=== PATIENT | female | born 1950 | race Hispanic/Latino ===

== ENCOUNTER 2019-10-22 12:03 | Inpatient (IN) | payer MEDICARE ==
[~2019-10-22 12:03] MED LIST: EPINEPHrine 1 MG/ML AMP ONE; Iopamidol 370 76% 50 ML VIAL FS ONE; Sodium Bicarb 50 MEQ/50 ML Abboject 8.4% SYRINGE ONE
[2019-10-22] MEDS ORDERED: Adacel (T-DAP) 0.5 ML SYRINGE ONE (12:12)
[2019-10-22] MEDS ORDERED: Fentanyl 100 MCG/2 ML VIAL ONE ×4 (12:13→14:46)
[2019-10-22] MEDS ORDERED: Ondansetron PF 4 MG/2 ML Vial ONE (12:13)
[2019-10-22] MEDS ORDERED: Succinylcholine Chloride 20 MG/ML 10 ml SYRINGE FS ONE (12:22)
[2019-10-22] MEDS ORDERED: Ketamine 50 MG/ML (10ML VIAL) ONE ×2 (12:22→12:32)
[2019-10-22] MEDS ORDERED: Sodium Bicarb 50 MEQ/50 ML VIAL ONE ×2 (12:31→23:58)
[2019-10-22] MEDS ORDERED: Calcium Chloride 1 GM/10 ML Abboject SYRINGE ONE ×4 (12:31→23:58)
[2019-10-22 12:33] LABS: #Eosinphils 0.1 thou/uL (0.0-0.7); #Lymphocytes 4.1 thou/uL (1.20-3.40); #Monocytes 0.4 thou/uL (0.11-0.59); #Neutrophils 9.5 thou/uL (1.40-6.50); %Basophils 0.2 % (0.0-1.0); %Eosinophils 0.6 % (0.0-10.0); %Lymphocytes 29.1 % (21.0-51.0); %Monocytes 2.5 % (0.0-10.0); %Neutrophils 67.6 % (42.0-75.0); Hemoglobin 12.1 g/dL (12.0-16.0); Mean Corpuscular HGB CONC 35.1 g/dL (32.0-36.0); Mean Corpuscular Hemoglobin 31.4 pg (27.0-31.0); Mean Corpuscular Volume 89.5 fL (78.0-98.0); Mean Platelet Volume 7.6 fL (7.4-10.4); Platelet Count 268 thou/uL (130-400); Red Blood Cell (RBC) Count 3.86 mill/uL (4.20-5.40); White Blood Cell (WBC) Count 14.1 thou/uL (4.8-10.8)
[2019-10-22] MEDS ORDERED: Heparin 10,000 UNITS/1 ML VIAL ONE (12:33)
[2019-10-22 12:41] LABS: INR-International Normal Ratio 1.1; Prothrombin Time 14.2 SEC (12.0-14.7)
[2019-10-22 12:54] LABS: ALT (SGPT) 293 U/L (8-55); AST (SGOT) 436 U/L (5-34); Albumin 3.8 g/dL (3.4-4.8); Alkaline Phosphatase 84 U/L (40-110); Anion Gap 20 mmol/L (10-20); BUN (Urea Nitrogen) 11 mg/dL (9.8-20.1); Bilirubin, Total 0.4 mg/dL (0.2-1.2); Calc. Creatinine Clearance 0 mL/min (70-130); Calcium 8.9 mg/dL (7.8-10.44); Carbon Dioxide 17 mmol/L (23-31); Chloride 100 mmol/L (98-107); Estimated GFR-MDRD 51; Globulin 2.9 g/dL (2.4-3.5); Glucose 237 mg/dL (80-115); Potassium 3.5 mmol/L (3.5-5.1); Protein, Total 6.7 g/dL (6.0-8.3); Sodium 133 mmol/L (136-145)
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
--- NOTE | 2019-10-22 13:10 | RAD ---
AP pelvis one view: HISTORY: The upper pelvis and iliac crests are not completely included. There is rotation to the right. There is considerable irregularity and deformity of the right pelvis particularly the superior and inferior ischiopubic rami which could represent extensively displaced fractures. There is also a luce ncy through the right sacral alar region which could represent fracture through this region as well. IMPRESSION: Extensive fractures and deformity of the right pelvis particularly the superior and inferior superior pubic rami considerable associated displacement and deformity. Evidence for right sided sacral fracture. Given the significant rotation follow-up study of the pelvis for additional imaging including CT migh t be of benefit.
[2019-10-22] MEDS ORDERED: Vecuronium 10 MG VIAL ONE ×2 (13:11→22:53)
[2019-10-22] MEDS ORDERED: Sterile Water 10 ML ONE (13:11)
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
[2019-10-22 13:45] LABS: Actual Bicarbonate (HCO3a) 17.6 mEq/L (22-28); Analyzer IN Cardio ER; Base Excess (BEa) -6.8 mEq/L (-2.0 to +3.0); CO2 Tension 31.7 mmHg (35.0-45.0); Calcium, Ionized 1.39 mmol/L (1.12-1.30); Carboxyhemoglobin (COHb) 0.3 gm% (0.0-3.0); Hemoglobin (Hb) 11.6 g/dL (12.0-16.0); O2 Tension (PaO2) 85.1 mmHg (> 80.0); Potassium - ABG Lab 3.59 mmol/L (3.70-5.30); pH, Arterial 7.36 (7.35-7.45)
[2019-10-22 13:48] LABS: ALV-art Gradient 303.075 (0-20); Puncture Site ART LINE
[2019-10-22 13:56] LABS: Phosphorus 4.6 mg/dL (2.3-4.7)
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
[2019-10-22] MEDS ORDERED: Lidocaine 1% (PF) 30 ML VIAL ONE ×2 (14:29→23:26)
[2019-10-22] MEDS ORDERED: Albumin 5% 500 ML ONE (15:27)
[2019-10-22] MEDS ORDERED: Iopamidol-370 76% 500 ML 1 ML ONE (15:27)
[2019-10-22] MEDS ORDERED: Dextrose 50% Abboject 50 ML SYRINGE SLOW IVP PRN (15:33)
[2019-10-22] MEDS ORDERED: Dextrose 5% in Water 1,000 ML IV PRN (15:33)
[2019-10-22 15:43] LABS: Actual Bicarbonate (HCO3a) 19.4 mEq/L (22-28); Base Excess (BEa) -5.2 mEq/L (-2.0 to +3.0); CO2 Tension 33.9 mmHg (35.0-45.0); Calcium, Ionized 1.27 mmol/L (1.12-1.30); Carboxyhemoglobin (COHb) 0.8 gm% (0.0-3.0); Hemoglobin (Hb) 9.1 g/dL (12.0-16.0); O2 Tension (PaO2) 77.6 mmHg (> 80.0); Potassium - ABG Lab 3.48 mmol/L (3.70-5.30); Puncture Site ALINE; pH, Arterial 7.38 (7.35-7.45)
[2019-10-22 15:44] LABS: ALV-art Gradient 236.525 (0-20)
[2019-10-22] MEDS ORDERED: Ventilator Sedation Protocol 1 EACH FS ONE (15:46)
[2019-10-22] MEDS ORDERED: Hydrocortisone Sod Succ/PF 100 mg/2 ml Vial IVP SCH (16:00)
[2019-10-22] MEDS: Fentanyl 100 MCG/2 ML VIAL ONE ×2 (16:01→16:05)
[2019-10-22] MEDS ORDERED: Propofol 1,000 MG/100 ML VIAL IV PRN (16:02)
[2019-10-22] MEDS ORDERED: DISCONTINUE PREVIOUS NARCOTIC PAIN MEDICATIONS AND BENZODIAZEPINES FS SCH (16:02)
[2019-10-22] MEDS ORDERED: Lorazepam 2 MG/ML VIAL SLOW IVP PRN (16:02)
[2019-10-22] MEDS ORDERED: Hydrocortisone Sod Succ/PF 100 mg/2 ml Vial ONE (16:02)
[2019-10-22] MEDS ORDERED: Morphine 2 MG/ML SYRINGE SLOW IVP PRN (16:02)
[2019-10-22] MEDS ORDERED: Fentanyl BOLUS 250 ML IVPB PRN (16:02)
[2019-10-22] MEDS ORDERED: Propofol BOLUS 1,000 MG/100 ML VIAL IV PRN (16:02)
[2019-10-22 16:03] LABS: Hemoglobin 9.3 g/dL (12.0-16.0)
[2019-10-22] MEDS: fentaNYL Citrate/PF 2,000 MCG in Sodium Chloride 0.9% 60 ML IV SCH (16:27)
[2019-10-22 16:29] LABS: Anion Gap 15 mmol/L (10-20); BUN (Urea Nitrogen) 15 mg/dL (9.8-20.1); Calc. Creatinine Clearance 0 mL/min (70-130); Calcium 8.7 mg/dL (7.8-10.44); Carbon Dioxide 18 mmol/L (23-31); Chloride 110 mmol/L (98-107); Estimated GFR-MDRD 57; Glucose 191 mg/dL (80-115); Magnesium 1.5 mg/dL (1.6-2.6); Phosphorus 4.5 mg/dL (2.3-4.7); Potassium 3.7 mmol/L (3.5-5.1); Sodium 139 mmol/L (136-145)
[2019-10-22 16:43] LABS: Lactic Acid 6.6 mmol/L (0.5-2.2)
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
[2019-10-22] MEDS ORDERED: Sodium Chloride 0.9% 1,000 ML IV SCH (17:30)
[2019-10-22] MEDS ORDERED: Fentanyl 100 MCG/2 ML VIAL SLOW IVP SCH (17:30)
[2019-10-22] MEDS ORDERED: Albumin 5% 250 ML ONE (17:32)
[2019-10-22] MEDS: Albumin 5% 250 ML ONE (17:40)
[2019-10-22] MEDS ORDERED: Potassium Chloride 40 MEQ, Magnesium Sulfate 2 GM in Sodium Chloride 0.9% 250 ML 250 ML IVPB SCH (18:30)
[2019-10-22] MEDS ORDERED: Magnesium Sulfate 2 GM in Sodium Chloride 0.9% 100 ML IVPB SCH (18:30)
[2019-10-22 18:35] LABS: Actual Bicarbonate (HCO3a) 19.8 mEq/L (22-28); Base Excess (BEa) -5.4 mEq/L (-2.0 to +3.0); CO2 Tension 37.4 mmHg (35.0-45.0); Calcium, Ionized 1.18 mmol/L (1.12-1.30); Carboxyhemoglobin (COHb) 1.5 gm% (0.0-3.0); Hemoglobin (Hb) 7.8 g/dL (12.0-16.0); Potassium - ABG Lab 3.98 mmol/L (3.70-5.30); pH, Arterial 7.34 (7.35-7.45)
[2019-10-22 18:43] LABS: Puncture Site LINE
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
[2019-10-22 18:50] LABS: INR-International Normal Ratio 1.7; Prothrombin Time 19.5 SEC (12.0-14.7)
[2019-10-22 18:59] LABS: Hemoglobin 7.6 g/dL (12.0-16.0); Mean Corpuscular HGB CONC 35.1 g/dL (32.0-36.0); Mean Corpuscular Hemoglobin 29.8 pg (27.0-31.0); Mean Corpuscular Volume 84.9 fL (78.0-98.0); Mean Platelet Volume 7.8 fL (7.4-10.4); Platelet Count 60 thou/uL (130-400); RBC Distribution Width 12.9 % (11.5-14.5); Red Blood Cell (RBC) Count 2.56 mill/uL (4.20-5.40); White Blood Cell (WBC) Count 8.6 thou/uL (4.8-10.8)
[2019-10-22 19:00] LABS: #Eosinphils 0.1 thou/uL (0.0-0.7); #Lymphocytes 0.8 thou/uL (1.20-3.40); #Monocytes 0.6 thou/uL (0.11-0.59); #Neutrophils 7.2 thou/uL (1.40-6.50); %Eosinophils 0.6 % (0.0-10.0); %Lymphocytes 9.5 % (21.0-51.0); %Monocytes 6.5 % (0.0-10.0); %Neutrophils 83.4 % (42.0-75.0)
[2019-10-22 19:04] LABS: Fibrinogen 122 mg/dL (253-463)
[2019-10-22 19:23] LABS: FSP-Qualitative ABNORMAL (Normal); FSP-Semiquantitative >=80 & <160 mcg/mL (Less than 5)
[2019-10-22 19:26] LABS: Band 24 % (5-11); Lymphocytes 7 % (21-51); MDiff Complete? YES; Metamyelocyte 1 % (0-0); Monocytes 2 % (0-10); Neutrophil 66 % (42-75); Platelet Morphology Comment Appears Decreased; Polychromasia SLIGHT = 2-3 cells (100X) (0-2/hpf)
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
[2019-10-22] MEDS ORDERED: Lactated Ringer's 1,000 ML IV SCH (20:00)
[2019-10-22] MEDS: HumaLOG 300 UNITS/3 ML VIAL SC PRN (20:11)
[2019-10-22] MEDS ORDERED: Famotidine/PF 20 mg/2ml Vial SLOW IVP SCH (21:00)
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
[2019-10-22 22:18] LABS: Hemoglobin 8.5 g/dL (12.0-16.0)
[2019-10-22 22:50] LABS: Actual Bicarbonate (HCO3a) 18.7 mEq/L (22-28); Base Excess (BEa) -7.6 mEq/L (-2.0 to +3.0); CO2 Tension 40.8 mmHg (35.0-45.0); Calcium, Ionized 1.27 mmol/L (1.12-1.30); Hemoglobin (Hb) 8.7 g/dL (12.0-16.0); O2 Tension (PaO2) 69.7 mmHg (> 80.0); pH, Arterial 7.28 (7.35-7.45)
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
[2019-10-22 22:54] LABS: Puncture Site LINE
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
[2019-10-22 22:58] LABS: Amphetamine Not Detected (NotDetected); Barbiturates Screen Not Detected (NotDetected); Benzodiazepine Screen Not Detected (NotDetected); Cocaine Metabolite Screen Not Detected (NotDetected); Medtox Control Line Valid? VALID (VALID); Medtox Reader # READER 4; Methadone Not Detected (NotDetected); Methamphetamine Not Detected (NotDetected); Opiate Screen Not Detected (NotDetected); Oxycodone Screen Not Detected (NotDetected); Phencyclidine (PCP) Not Detected (NotDetected); THC/Cannabinoid Screen Not Detected (NotDetected); Tricyclic Screen Not Detected (NotDetected)
[2019-10-22] MEDS ORDERED: ADMIXTURE FEE IVPB SCH (23:00)
[2019-10-22] MEDS ORDERED: Magnesium 2 GM/50 ML 2 GM in Premix Bag 1 BAG IVPB SCH (23:00)
[2019-10-22] MEDS ORDERED: Vecuronium 10 MG VIAL IVP SCH (23:00)
[2019-10-22] MEDS ORDERED: MIDAZOLAM HCL IVPB SCH (23:00)
[2019-10-22] MEDS ORDERED: SODIUM CHLORIDE IVPB SCH (23:00)
[2019-10-22 23:01] LABS: Bilirubin Negative (Negative); Blood, Urine 2+ (Negative); Clarity Clear (Clear); Glucose, Urine (Dipstick) Normal (Negative); Leukocyte Negative Leu/uL (Negative); Nitrite Negative (Negative); Protein, Urine (Dipstick) 20 mg/dL (Neg-Trace); RBC/HPF Greater than 50 HPF (0-3); Squamous Epithelial 0-3 HPF (0-3); Urobilinogen Normal mg/dL (Less than 2)
[2019-10-22 23:07] LABS: Bacteria/HPF Rare-Few HPF (None Seen)
[2019-10-22 23:07] LABS: INR-International Normal Ratio 1.3; Prothrombin Time 15.9 SEC (12.0-14.7)
[2019-10-22] MEDS: Hydrocortisone Sod Succ/PF 100 mg/2 ml Vial IVP SCH (23:22)
[2019-10-22] MEDS ORDERED: Ketorolac Tromethamine 30 MG/ML VIAL ONE (23:28)
[2019-10-22] MEDS ORDERED: Furosemide 40 MG/4 ML VIAL ONE (23:34)
[2019-10-22] MEDS ORDERED: Furosemide 20 MG/2 ML VIAL SLOW IVP SCH (23:45)
[2019-10-22] MEDS ORDERED: Ketorolac Tromethamine 30 MG/ML VIAL IVP SCH (23:45)
[2019-10-23 00:05] LABS: Anion Gap 17 mmol/L (10-20); BUN (Urea Nitrogen) 18 mg/dL (9.8-20.1); Calc. Creatinine Clearance 75 mL/min (70-130); Calcium 9.3 mg/dL (7.8-10.44); Carbon Dioxide 20 mmol/L (23-31); Chloride 110 mmol/L (98-107); Estimated GFR-MDRD 48; Glucose 170 mg/dL (80-115); Magnesium 2.8 mg/dL (1.6-2.6); Phosphorus 5.2 mg/dL (2.3-4.7); Potassium 4.4 mmol/L (3.5-5.1); Sodium 143 mmol/L (136-145)
[2019-10-23] MEDS: Vasopressin 40 UNIT, Admixture Fee 1 EACH in Sodium Chloride 0.9% 100 ML IV SCH ×2 (01:19→15:46)
[2019-10-23] MEDS: HumaLOG 300 UNITS/3 ML VIAL SC PRN ×3 (01:28→22:01)
[2019-10-23] MEDS ORDERED: Sodium Bicarbonate 100 MEQ in Dextrose 5% in Water 1,000 ML IV SCH (02:30)
[2019-10-23] MEDS: Lactated Ringer's 1,000 ML IV SCH ×4 (02:53→20:18)
[2019-10-23] MEDS: Sodium Bicarb 50 MEQ/50 ML VIAL ONE ×2 (02:54→02:55)
[2019-10-23] MEDS ORDERED: Sodium Bicarb 50 MEQ/50 ML VIAL IVP SCH (03:30)
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
[2019-10-23 04:35] LABS: #Basophils 0.1 thou/uL (0.0-0.2); #Lymphocytes 0.6 thou/uL (1.20-3.40); #Monocytes 0.4 thou/uL (0.11-0.59); %Basophils 0.8 % (0.0-1.0); %Eosinophils 0.3 % (0.0-10.0); %Lymphocytes 8.3 % (21.0-51.0); %Monocytes 6.1 % (0.0-10.0); %Neutrophils 84.4 % (42.0-75.0); Hemoglobin 11.2 g/dL (12.0-16.0); Mean Corpuscular HGB CONC 35.2 g/dL (32.0-36.0); Mean Corpuscular Hemoglobin 31.1 pg (27.0-31.0); Mean Corpuscular Volume 88.1 fL (78.0-98.0); Mean Platelet Volume 8.7 fL (7.4-10.4); Platelet Count 129 thou/uL (130-400); RBC Distribution Width 13.1 % (11.5-14.5); Red Blood Cell (RBC) Count 3.59 mill/uL (4.20-5.40); White Blood Cell (WBC) Count 7.1 thou/uL (4.8-10.8)
[2019-10-23 05:04] LABS: Lactic Acid 9.7 mmol/L (0.5-2.2)
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
[2019-10-23 05:15] LABS: ALT (SGPT) 374 U/L (8-55); AST (SGOT) 622 U/L (5-34); Albumin 3.1 g/dL (3.4-4.8); Alkaline Phosphatase 51 U/L (40-110); Anion Gap 19 mmol/L (10-20); BUN (Urea Nitrogen) 20 mg/dL (9.8-20.1); Bilirubin, Total 1.1 mg/dL (0.2-1.2); CK (CPK) 2512 U/L (29-168); Calc. Creatinine Clearance 77 mL/min (70-130); Calcium 9.7 mg/dL (7.8-10.44); Carbon Dioxide 22 mmol/L (23-31); Chloride 110 mmol/L (98-107); Estimated GFR-MDRD 50; Glucose 187 mg/dL (80-115); Lipase 14 U/L (8-78); Magnesium 2.1 mg/dL (1.6-2.6); Phosphorus 5.1 mg/dL (2.3-4.7); Potassium 4.1 mmol/L (3.5-5.1); Protein, Total 5.1 g/dL (6.0-8.3); Sodium 147 mmol/L (136-145)
[2019-10-23] MEDS: Hydrocortisone Sod Succ/PF 100 mg/2 ml Vial IVP SCH ×3 (06:07→17:52)
[2019-10-23 07:12] LABS: ALV-art Gradient 532.375 (0-20); CO2 Tension 37.3 mmHg (35.0-45.0); Calcium, Ionized 1.28 mmol/L (1.12-1.30); Carboxyhemoglobin (COHb) 0.5 gm% (0.0-3.0); Hemoglobin (Hb) 11.5 g/dL (12.0-16.0); O2 Tension (PaO2) 62.7 mmHg (> 80.0); Potassium - ABG Lab 4.09 mmol/L (3.70-5.30); Puncture Site ALINE; pH, Arterial 7.35 (7.35-7.45)
[2019-10-23] MEDS: Acetaminophen 650 MG Suppository PR PRN ×2 (07:20→14:22)
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
[2019-10-23] MEDS ORDERED: Lidocaine 1% (PF) 30 ML VIAL ONE (08:10)
[2019-10-23] MEDS ORDERED: Albumin 5% 250 ML ONE ×2 (08:40→09:26)
[2019-10-23 08:50] LABS: Actual Bicarbonate (HCO3v) 22 mEq/L (22-28); Calcium, Ionized 1.24 mmol/L (1.16-1.32); Chloride (ABG LAB) 110 mmol/L (98-106); Hemoglobin (Hb) 11.4 g/dL (11.7-16.1); Potassium - ABG Lab 3.88 mmol/L (3.70-5.30); Sodium 145.7 mmol/L (133-146); pH (venous) 7.28 (7.32-7.43)
[2019-10-23] MEDS ORDERED: Prevnar 13-Val Conj/PF 0.5 ML SYRINGE IM ONE (09:00)
[2019-10-23] MEDS ORDERED: FLU VACC TS2019-20(65YR UP)/PF 180 MCG/0.5 ML SYRINGE IM ONE (09:00)
[2019-10-23 09:34] LABS: INR-International Normal Ratio 1.5; PTT 30.8 SEC (22.9-36.1); Prothrombin Time 17.9 SEC (12.0-14.7)
[2019-10-23 09:49] LABS: Lactic Acid 10.1 mmol/L (0.5-2.2)
[2019-10-23 10:00] LABS: Hemoglobin 10.1 g/dL (12.0-16.0); Mean Corpuscular HGB CONC 34.2 g/dL (32.0-36.0); Mean Corpuscular Hemoglobin 30.4 pg (27.0-31.0); Mean Platelet Volume 9.1 fL (7.4-10.4); Platelet Count 106 thou/uL (130-400); RBC Distribution Width 13.3 % (11.5-14.5); Red Blood Cell (RBC) Count 3.32 mill/uL (4.20-5.40); White Blood Cell (WBC) Count 4.4 thou/uL (4.8-10.8)
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
[2019-10-23 10:06] LABS: Band 39 % (5-11); Lymphocytes 7 % (21-51); MDiff Complete? YES; Monocytes 5 % (0-10); Neutrophil 50 % (42-75); Platelet Morphology Comment Appears Decreased; Polychromasia SLIGHT = 2-3 cells (100X) (0-2/hpf)
[2019-10-23] MEDS ORDERED: Lactated Ringer's 500 ML IV SCH ×2 (10:15→16:30)
[2019-10-23] MEDS: Famotidine/PF 20 mg/2ml Vial SLOW IVP SCH ×2 (11:36→20:07)
[2019-10-23] MEDS: Piperacillin/Tazobactam 3.375 GM in Sodium Chloride 0.9% 100 ML IVPB SCH ×2 (12:35→17:51)
[2019-10-23 14:49] LABS: Anion Gap 15 mmol/L (10-20); BUN (Urea Nitrogen) 26 mg/dL (9.8-20.1); Calc. Creatinine Clearance 65 mL/min (70-130); Calcium 9.1 mg/dL (7.8-10.44); Carbon Dioxide 23 mmol/L (23-31); Chloride 113 mmol/L (98-107); Estimated GFR-MDRD 41; Glucose 190 mg/dL (80-115); Magnesium 1.9 mg/dL (1.6-2.6); Phosphorus 3.9 mg/dL (2.3-4.7); Potassium 3.8 mmol/L (3.5-5.1); Sodium 147 mmol/L (136-145)
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
[2019-10-23 19:19] LABS: Hemoglobin 9.1 g/dL (12.0-16.0)
[2019-10-23] MEDS ORDERED: Potassium Phosphate 15 MMOL in Sodium Chloride 0.9% 250 ML 250 ML IVPB SCH (19:45)
[2019-10-23] MEDS ORDERED: Lactated Ringer's 1,000 ML IV SCH (19:45)
[2019-10-23] MEDS ORDERED: Magnesium 2 GM/50 ML 2 GM in Premix Bag 1 BAG IVPB SCH (19:45)
[2019-10-23] MEDS: Acetaminophen 650 MG Suppository PR SCH (19:47)
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
[2019-10-24 00:58] LABS: Prothrombin Time 22.5 SEC (12.0-14.7)
[2019-10-24 01:15] LABS: Anion Gap 18 mmol/L (10-20); BUN (Urea Nitrogen) 33 mg/dL (9.8-20.1); CK (CPK) 2185 U/L (29-168); Calc. Creatinine Clearance 63 mL/min (70-130); Calcium 8.5 mg/dL (7.8-10.44); Carbon Dioxide 18 mmol/L (23-31); Chloride 113 mmol/L (98-107); Estimated GFR-MDRD 39; Glucose 180 mg/dL (80-115); Magnesium 2.2 mg/dL (1.6-2.6); Phosphorus 4.4 mg/dL (2.3-4.7); Potassium 3.8 mmol/L (3.5-5.1); Sodium 145 mmol/L (136-145)
[2019-10-24 01:21] LABS: Band 55 % (5-11); Hemoglobin 8.6 g/dL (12.0-16.0); Lymphocytes 21 % (21-51); MDiff Complete? YES; Mean Corpuscular HGB CONC 35.4 g/dL (32.0-36.0); Mean Corpuscular Hemoglobin 31.5 pg (27.0-31.0); Mean Corpuscular Volume 88.9 fL (78.0-98.0); Mean Platelet Volume 9.2 fL (7.4-10.4); Metamyelocyte 10 % (0-0); Monocytes 2 % (0-10); Neutrophil 12 % (42-75); Platelet Count 73 thou/uL (130-400); Platelet Morphology Comment Appears Decreased; RBC Distribution Width 13.6 % (11.5-14.5); Red Blood Cell (RBC) Count 2.73 mill/uL (4.20-5.40); White Blood Cell (WBC) Count 2.1 thou/uL (4.8-10.8)
[2019-10-24 01:22] LABS: Lactic Acid 9.8 mmol/L (0.5-2.2)
[2019-10-24] MEDS: Hydrocortisone Sod Succ/PF 100 mg/2 ml Vial IVP SCH ×5 (01:30→23:21)
[2019-10-24] MEDS: Piperacillin/Tazobactam 3.375 GM in Sodium Chloride 0.9% 100 ML IVPB SCH ×5 (01:30→23:21)
[2019-10-24] MEDS ORDERED: Pharmacy to Dose 1 EACH : VANC IVPB PRN (01:33)
[2019-10-24 01:40] LABS: Actual Bicarbonate (HCO3a) 17.1 mEq/L (22-28); Base Excess (BEa) -5.7 mEq/L (-2.0 to +3.0); Calcium, Ionized 1.16 mmol/L (1.12-1.30); Carboxyhemoglobin (COHb) 0.1 gm% (0.0-3.0); Hemoglobin (Hb) 8.7 g/dL (12.0-16.0); O2 Tension (PaO2) 65.2 mmHg (> 80.0); Potassium - ABG Lab 3.68 mmol/L (3.70-5.30); pH, Arterial 7.46 (7.35-7.45)
[2019-10-24 01:41] LABS: CO2 Tension 24.4 mmHg (35.0-45.0); Puncture Site LINE
[2019-10-24] MEDS ORDERED: Vancomycin 1.5 GRAM/300 ML BAG 1.5 GM in Premix Bag 1 BAG IVPB SCH (02:00)
[2019-10-24] MEDS: Acetaminophen 650 MG Suppository PR SCH ×4 (03:00→20:27)
[2019-10-24] MEDS: Lactated Ringer's 1,000 ML IV SCH ×4 (06:24→22:30)
[2019-10-24 07:02] LABS: Base Excess (BEa) -4.4 mEq/L (-2.0 to +3.0); CO2 Tension 33.3 mmHg (35.0-45.0); Calcium, Ionized 1.16 mmol/L (1.12-1.30); Carboxyhemoglobin (COHb) 1.4 gm% (0.0-3.0); Hemoglobin (Hb) 6.8 g/dL (12.0-16.0); Potassium - ABG Lab 3.61 mmol/L (3.70-5.30)
[2019-10-24 07:20] LABS: Fibrinogen 607 mg/dL (253-463)
[2019-10-24 07:21] LABS: INR-International Normal Ratio 1.8; PTT 39.1 SEC (22.9-36.1)
[2019-10-24 07:24] LABS: Anion Gap 17 mmol/L (10-20); BUN (Urea Nitrogen) 33 mg/dL (9.8-20.1); Calc. Creatinine Clearance 69 mL/min (70-130); Carbon Dioxide 21 mmol/L (23-31); Chloride 112 mmol/L (98-107); Estimated GFR-MDRD 42; Potassium 3.6 mmol/L (3.5-5.1); Sodium 146 mmol/L (136-145)
[2019-10-24 07:25] LABS: ALT (SGPT) 361 U/L (8-55); AST (SGOT) 407 U/L (5-34); Albumin 2.8 g/dL (3.4-4.8); Alkaline Phosphatase 43 U/L (40-110); Bilirubin, Total 1.2 mg/dL (0.2-1.2); CK (CPK) 2168 U/L (29-168); Calcium 8.6 mg/dL (7.8-10.44); Glucose 168 mg/dL (80-115); Magnesium 2.2 mg/dL (1.6-2.6); Phosphorus 3.6 mg/dL (2.3-4.7); Protein, Total 4.8 g/dL (6.0-8.3)
[2019-10-24 07:30] LABS: ALV-art Gradient 295.425 (0-20); O2 Tension (PaO2) 55.1 mmHg (> 80.0); Puncture Site ALINE
[2019-10-24 07:34] LABS: Lactic Acid 7.1 mmol/L (0.5-2.2)
[2019-10-24 07:36] LABS: D-Dimer Test Greater than 20.00 *mcg/mL (0.27-0.43)
[2019-10-24] MEDS ORDERED: Potassium Phosphate 30 MMOL in Sodium Chloride 0.9% 500 ML IVPB SCH (07:45)
[2019-10-24 07:51] LABS: FSP-Qualitative ABNORMAL (Normal)
[2019-10-24] MEDS: Famotidine/PF 20 mg/2ml Vial SLOW IVP SCH ×2 (07:52→20:26)
[2019-10-24 07:53] LABS: FSP-Semiquantitative >=40 & <80 mcg/mL (Less than 5)
[2019-10-24 07:59] LABS: Platelet Count 76 thou/uL (130-400)
[2019-10-24] MEDS ORDERED: Potassium Phosphate 30 MMOL in Sodium Chloride 0.9% 250 ML 250 ML IVPB SCH ×2 (08:00→23:15)
[2019-10-24 08:59] LABS: Hemoglobin 7.8 g/dL (12.0-16.0); Mean Corpuscular HGB CONC 33.4 g/dL (32.0-36.0); Mean Corpuscular Hemoglobin 29.8 pg (27.0-31.0); Mean Corpuscular Volume 89.3 fL (78.0-98.0); Mean Platelet Volume 9.9 fL (7.4-10.4); Platelet Count 78 thou/uL (130-400); RBC Distribution Width 13.7 % (11.5-14.5); Red Blood Cell (RBC) Count 2.62 mill/uL (4.20-5.40); White Blood Cell (WBC) Count 4.3 thou/uL (4.8-10.8)
[2019-10-24 09:02] LABS: Band 40 % (5-11); Lymphocytes 10 % (21-51); MDiff Complete? YES; Metamyelocyte 2 % (0-0); Monocytes 8 % (0-10); Neutrophil 40 % (42-75); Platelet Morphology Comment Appears Decreased; Polychromasia SLIGHT = 2-3 cells (100X) (0-2/hpf)
[2019-10-24] MEDS ORDERED: Vecuronium 10 MG VIAL ONE ×2 (09:51→12:42)
--- NOTE | 2019-10-24 09:59 | RAD ---
CHEST 1 VIEW: HISTORY: Chest tube evaluation. COMPARISON: Radiograph prior day. FINDINGS: Right-sided thoracostomy tube is similar. Increasing right subcutaneous emphysema. Endotracheal tub e tip above the angel 2.2 cm. Left thoracostomy tube appears new. Layering right pleural effusion. Worsening right airspace consolidation. Bilateral rib fractures. Enteric tube tip is below the diaphragm. IMPRESSION: Worsening aeration of the lungs suggesting evolving pulmonary contusions. POS: [facility]
[2019-10-24] MEDS: fentaNYL Citrate/PF 2,000 MCG in Sodium Chloride 0.9% 60 ML IV SCH (11:01)
[2019-10-24] MEDS: HumaLOG 300 UNITS/3 ML VIAL SC PRN (11:04)
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
[2019-10-24] MEDS ORDERED: Norepinephrine 4 MG/4 ML VIAL ONE (12:23)
[2019-10-24] MEDS ORDERED: Phenylephrine 10 MG/ML VIAL ONE (12:23)
[2019-10-24] MEDS ORDERED: Albumin 5% 0 ML ONE (12:24)
[2019-10-24] MEDS ORDERED: Ketamine 50 MG/ML (10ML VIAL) ONE (12:41)
[2019-10-24] MEDS ORDERED: Midazolam HCl 5 mg/5 ml Vial ONE (12:48)
[2019-10-24] MEDS ORDERED: Fentanyl 250 MCG/5 ML VIAL ONE (12:48)
--- NOTE | 2019-10-24 15:21 | RAD ---
Exam: 1 view abdomen HISTORY: Dobbhoff feeding tube placement FINDINGS: 1 view abdomen demonstrates a nasogastric tube terminating in the mid body of the stomach. Dobbhoff f eeding tube coils upon itself and appears to terminate in the mid body of stomach as well. Advancement and repositioning is recommended IMPRESSION: Dobbhoff feeding tube placement as above. Advancement and repositioning is recommended.
[2019-10-24] MEDS ORDERED: Furosemide 40 MG/4 ML VIAL ONE (15:37)
[2019-10-24] MEDS ORDERED: Furosemide 100 MG in Sodium Chloride 0.9% 100 ML IVPB SCH (16:00)
[2019-10-24 16:11] LABS: Mean Corpuscular HGB CONC 34.5 g/dL (32.0-36.0); Mean Corpuscular Hemoglobin 30.5 pg (27.0-31.0); Mean Corpuscular Volume 88.5 fL (78.0-98.0); Mean Platelet Volume 9.1 fL (7.4-10.4); Platelet Count 100 thou/uL (130-400); RBC Distribution Width 13.7 % (11.5-14.5); Red Blood Cell (RBC) Count 3.26 mill/uL (4.20-5.40); White Blood Cell (WBC) Count 5.2 thou/uL (4.8-10.8)
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
[2019-10-24 16:33] LABS: Anion Gap 17 mmol/L (10-20); BUN (Urea Nitrogen) 29 mg/dL (9.8-20.1); Calc. Creatinine Clearance 97 mL/min (70-130); Calcium 8.2 mg/dL (7.8-10.44); Carbon Dioxide 21 mmol/L (23-31); Chloride 114 mmol/L (98-107); Estimated GFR-MDRD 62; Glucose 159 mg/dL (80-115); Phosphorus 3.3 mg/dL (2.3-4.7); Potassium 3.6 mmol/L (3.5-5.1); Sodium 148 mmol/L (136-145)
[2019-10-24 16:35] LABS: Lactic Acid 4.7 mmol/L (0.5-2.2)
[2019-10-24 16:39] LABS: Actual Bicarbonate (HCO3a) 21.1 mEq/L (22-28); Base Excess (BEa) -4.1 mEq/L (-2.0 to +3.0); Calcium, Ionized 1.09 mmol/L (1.12-1.30); Carboxyhemoglobin (COHb) 0.9 gm% (0.0-3.0); Hemoglobin (Hb) 9.8 g/dL (12.0-16.0); O2 Tension (PaO2) 47.1 mmHg (> 80.0); Potassium - ABG Lab 3.57 mmol/L (3.70-5.30); pH, Arterial 7.35 (7.35-7.45)
[2019-10-24 16:40] LABS: Puncture Site ALINE
[2019-10-24 16:45] LABS: Band 83 % (5-11); Lymphocytes 9 % (21-51); MDiff Complete? YES; Metamyelocyte 2 % (0-0); Monocytes 2 % (0-10); Neutrophil 3 % (42-75); Ovalocytes SLIGHT = 2-5 cells (100X) (0-1/hpf); Platelet Morphology Comment Appears Decreased; Polychromasia SLIGHT = 2-3 cells (100X) (0-2/hpf); Reactive Lymphocytes 1 % (0-10)
[2019-10-24] MEDS ORDERED: Propofol 1,000 MG/100 ML VIAL IV ONE (17:02)
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
[2019-10-24] MEDS ORDERED: Calcium Chloride 1 GM/10 ML Abboject SYRINGE IVP SCH (20:00)
[2019-10-24 22:26] LABS: Hemoglobin 9.6 g/dL (12.0-16.0); Mean Corpuscular HGB CONC 34.3 g/dL (32.0-36.0); Mean Corpuscular Hemoglobin 29.9 pg (27.0-31.0); Mean Corpuscular Volume 87.3 fL (78.0-98.0); Mean Platelet Volume 9.2 fL (7.4-10.4); Platelet Count 101 thou/uL (130-400); RBC Distribution Width 13.8 % (11.5-14.5); Red Blood Cell (RBC) Count 3.21 mill/uL (4.20-5.40); White Blood Cell (WBC) Count 6.7 thou/uL (4.8-10.8)
[2019-10-24 22:30] LABS: INR-International Normal Ratio 1.5; Prothrombin Time 18.4 SEC (12.0-14.7)
[2019-10-24 22:39] LABS: Band 46 % (5-11); Dohle Bodies SLIGHT; Lactic Acid 3.3 mmol/L (0.5-2.2); Lymphocytes 8 % (21-51); MDiff Complete? YES; Metamyelocyte 2 % (0-0); Monocytes 3 % (0-10); Neutrophil 41 % (42-75); Nucleated RBC 1 % (0); Platelet Morphology Comment Appears Decreased; Vacuoles SLIGHT
[2019-10-24 22:58] LABS: Anion Gap 14 mmol/L (10-20); BUN (Urea Nitrogen) 29 mg/dL (9.8-20.1); Calc. Creatinine Clearance 99 mL/min (70-130); Calcium 9.9 mg/dL (7.8-10.44); Carbon Dioxide 23 mmol/L (23-31); Chloride 115 mmol/L (98-107); Estimated GFR-MDRD 64; Glucose 120 mg/dL (80-115); Phosphorus 2.5 mg/dL (2.3-4.7); Potassium 3.1 mmol/L (3.5-5.1); Sodium 149 mmol/L (136-145)
[2019-10-25] MEDS ORDERED: Vancomycin 1 GM in Premix Bag 1 BAG IVPB SCH (01:00)
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
[2019-10-25] MEDS: Acetaminophen 650 MG Suppository PR SCH ×2 (02:05→07:39)
[2019-10-25] MEDS: Hydrocortisone Sod Succ/PF 100 mg/2 ml Vial IVP SCH ×4 (05:34→23:07)
[2019-10-25] MEDS: Lactated Ringer's 1,000 ML IV SCH (05:35)
[2019-10-25] MEDS: Piperacillin/Tazobactam 3.375 GM in Sodium Chloride 0.9% 100 ML IVPB SCH ×4 (05:35→23:07)
[2019-10-25 06:24] LABS: INR-International Normal Ratio 1.6; PTT 30.1 SEC (22.9-36.1); Prothrombin Time 18.7 SEC (12.0-14.7)
[2019-10-25 06:27] LABS: Band 41 % (5-11); Dohle Bodies SLIGHT; Hemoglobin 9.3 g/dL (12.0-16.0); Lymphocytes 3 % (21-51); MDiff Complete? YES; Mean Corpuscular HGB CONC 34.3 g/dL (32.0-36.0); Mean Corpuscular Hemoglobin 30.1 pg (27.0-31.0); Mean Corpuscular Volume 87.8 fL (78.0-98.0); Mean Platelet Volume 9.2 fL (7.4-10.4); Monocytes 2 % (0-10); Neutrophil 54 % (42-75); Nucleated RBC 3 % (0); Platelet Count 98 thou/uL (130-400); Platelet Morphology Comment Appears Decreased; RBC Distribution Width 13.9 % (11.5-14.5); White Blood Cell (WBC) Count 8.3 thou/uL (4.8-10.8)
[2019-10-25 06:35] LABS: Actual Bicarbonate (HCO3a) 23.2 mEq/L (22-28); Base Excess (BEa) 1.5 mEq/L (-2.0 to +3.0); Calcium, Ionized 1.15 mmol/L (1.12-1.30); Carboxyhemoglobin (COHb) 1.2 gm% (0.0-3.0); Hemoglobin (Hb) 8.2 g/dL (12.0-16.0)
[2019-10-25 06:38] LABS: Lactic Acid 2.9 mmol/L (0.5-2.2)
[2019-10-25 06:42] LABS: CO2 Tension 25.9 mmHg (35.0-45.0); Puncture Site ALINE; pH, Arterial 7.57 (7.35-7.45)
[2019-10-25 06:43] LABS: ALV-art Gradient 272.775 (0-20)
[2019-10-25] MEDS ORDERED: Lactated Ringer's 1,000 ML IV SCH (06:44)
[2019-10-25 06:47] LABS: ALT (SGPT) 223 U/L (8-55); AST (SGOT) 213 U/L (5-34); Albumin 2.6 g/dL (3.4-4.8); Alkaline Phosphatase 49 U/L (40-110); Anion Gap 13 mmol/L (10-20); BUN (Urea Nitrogen) 28 mg/dL (9.8-20.1); Bilirubin, Total 1.5 mg/dL (0.2-1.2); CK (CPK) 1862 U/L (29-168); Calc. Creatinine Clearance 94 mL/min (70-130); Calcium 9.1 mg/dL (7.8-10.44); Carbon Dioxide 24 mmol/L (23-31); Chloride 115 mmol/L (98-107); Estimated GFR-MDRD 61; Globulin 2.4 g/dL (2.4-3.5); Glucose 125 mg/dL (80-115); Magnesium 1.8 mg/dL (1.6-2.6); Phosphorus 3.6 mg/dL (2.3-4.7); Potassium 3.3 mmol/L (3.5-5.1); Sodium 149 mmol/L (136-145)
[2019-10-25] MEDS ORDERED: Potassium Chloride 40 MEQ in Premix Bag 1 BAG IVPB SCH (08:00)
--- NOTE | 2019-10-25 08:22 | RAD ---
Chest one view HISTORY: Respiratory failure. Follow-up. COMPARISON: 10/24/2019. FINDINGS: Cardiac silhouette is magnified and partially obscured by ill-defined parenchymal opacity a t each lung similar in appearance to the prior study. Mediastinum is midline. Lines and tubes, including bilateral thoracostomy tubes, are unchanged in pos ition. Pulmonary vasculature is engorged. Left pleural fluid similar in appearance to the prior study. No re sidual pneumothorax evident. Small amount right lower chest wall gas. Rib fractures less conspicuous. dynamics ax developer leads overlie the chest. IMPRESSION: Stable posttraumatic appearance of the chest.
[2019-10-25] MEDS: Famotidine/PF 20 mg/2ml Vial SLOW IVP SCH ×2 (08:27→20:07)
[2019-10-25] MEDS: Saccharomyces boulardii 250 MG CAP PO SCH (08:27)
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
[2019-10-25] MEDS ORDERED: Magnesium Sulfate 3 GM in Sodium Chloride 0.9% 100 ML IVPB SCH (10:45)
[2019-10-25] MEDS: D5 1/2 NS w/20 mEq KCL 1,000 ML IV SCH ×3 (11:06→21:32)
[2019-10-25] MEDS: Metoprolol Tartrate 25 MG TAB PO SCH ×3 (11:07→23:07)
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
[2019-10-25] MEDS: Acetaminophen 650 MG/20.3 ML UDCUP PO SCH ×3 (11:48→23:06)
[2019-10-25] MEDS ORDERED: Metoprolol Tartrate 25 MG TAB PO SCH (12:00)
[2019-10-25] MEDS: fentaNYL Citrate/PF 2,000 MCG in Sodium Chloride 0.9% 60 ML IV SCH (12:04)
[2019-10-25] MEDS: HumaLOG 300 UNITS/3 ML VIAL SC PRN (17:38)
[2019-10-25] MEDS ORDERED: Furosemide 100 MG, Admixture Fee 1 EACH in Sodium Chloride 0.9% 90 ML IVPB SCH (19:15)
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
[2019-10-26 00:10] LABS: Vancomycin, Trough 7.3 ug/mL
[2019-10-26] MEDS ORDERED: Vancomycin 1.5 GRAM/300 ML BAG 1.5 GM in Premix Bag 1 BAG IVPB SCH (00:45)
[2019-10-26] MEDS: Metoprolol Tartrate 25 MG TAB PO SCH ×4 (05:02→23:05)
[2019-10-26] MEDS: Hydrocortisone Sod Succ/PF 100 mg/2 ml Vial IVP SCH ×4 (05:02→21:07)
[2019-10-26] MEDS: Acetaminophen 650 MG/20.3 ML UDCUP PO SCH ×4 (05:02→23:05)
[2019-10-26] MEDS: Piperacillin/Tazobactam 3.375 GM in Sodium Chloride 0.9% 100 ML IVPB SCH ×3 (05:03→17:15)
[2019-10-26 05:55] LABS: Lactic Acid 1.4 mmol/L (0.5-2.2)
[2019-10-26 05:58] LABS: ALT (SGPT) 206 U/L (8-55); AST (SGOT) 188 U/L (5-34); Albumin 2.5 g/dL (3.4-4.8); Alkaline Phosphatase 75 U/L (40-110); Anion Gap 12 mmol/L (10-20); BUN (Urea Nitrogen) 36 mg/dL (9.8-20.1); Bilirubin, Direct 0.5 mg/dL (0.1-0.3); Calc. Creatinine Clearance 105 mL/min (70-130); Calcium 8.3 mg/dL (7.8-10.44); Carbon Dioxide 24 mmol/L (23-31); Chloride 117 mmol/L (98-107); Estimated GFR-MDRD 69; Glucose 157 mg/dL (80-115); Magnesium 2.4 mg/dL (1.6-2.6); Phosphorus 4.3 mg/dL (2.3-4.7); Potassium 3.9 mmol/L (3.5-5.1); Protein, Total 5.1 g/dL (6.0-8.3); Sodium 149 mmol/L (136-145)
[2019-10-26] MEDS: HumaLOG 300 UNITS/3 ML VIAL SC PRN ×2 (06:00→11:51)
[2019-10-26 06:11] LABS: Band 41 % (5-11); Dohle Bodies SLIGHT; Hemoglobin 8.7 g/dL (12.0-16.0); Lymphocytes 5 % (21-51); MDiff Complete? YES; Mean Corpuscular HGB CONC 33.1 g/dL (32.0-36.0); Mean Corpuscular Hemoglobin 29.9 pg (27.0-31.0); Mean Corpuscular Volume 90.1 fL (78.0-98.0); Mean Platelet Volume 9.4 fL (7.4-10.4); Metamyelocyte 3 % (0-0); Monocytes 3 % (0-10); Myelocyte 2 % (0-0); Neutrophil 46 % (42-75); Ovalocytes SLIGHT = 2-5 cells (100X) (0-1/hpf); Platelet Count 90 thou/uL (130-400); Platelet Morphology Comment Appears Decreased; Polychromasia SLIGHT = 2-3 cells (100X) (0-2/hpf); RBC Distribution Width 14.2 % (11.5-14.5); Red Blood Cell (RBC) Count 2.92 mill/uL (4.20-5.40)
[2019-10-26 06:34] LABS: Actual Bicarbonate (HCO3a) 24.2 mEq/L (22-28); Base Excess (BEa) -0.4 mEq/L (-2.0 to +3.0); CO2 Tension 39.1 mmHg (35.0-45.0); Calcium, Ionized 1.12 mmol/L (1.12-1.30); Carboxyhemoglobin (COHb) 0.7 gm% (0.0-3.0); Hemoglobin (Hb) 9.6 g/dL (12.0-16.0); O2 Tension (PaO2) 90.9 mmHg (> 80.0); pH, Arterial 7.41 (7.35-7.45)
[2019-10-26 06:54] LABS: Puncture Site ALINE
[2019-10-26 06:55] LABS: ALV-art Gradient 216.725 (0-20)
--- NOTE | 2019-10-26 07:58 | RAD ---
Chest one view HISTORY: Dyspnea. Intubated. Chest injury. Follow-up. COMPARISON: 10/25/2019. FINDINGS: Cardiac silhouette remains magnified, enlarged, and partially obscured by ill-defined paren chymal opacity at each lung base. Dense bilateral airspace disease has improved slightly. Patient is slightly rotated leftward on today's exam. Pulmonary vasculature remains engorged. Lines and tubes appear unchanged in position. Small amount of right chest wall gas is unchanged. No e vidence of pneumothorax. Bilateral rib fractures partially visualized. IMPRESSION: Slight interval improvement in bilateral perihilar parenchymal infiltrate. Other posttrau matic findings are stable.
[2019-10-26] MEDS: Hydrochlorothiazide 25 MG TAB PO SCH ×2 (08:38→20:02)
[2019-10-26] MEDS: Famotidine/PF 20 mg/2ml Vial SLOW IVP SCH ×2 (08:38→20:02)
[2019-10-26] MEDS: Amlodipine 5 MG TAB PO SCH (08:38)
[2019-10-26] MEDS: Donepezil HCl 10 MG TAB PO SCH (08:39)
[2019-10-26] MEDS: Saccharomyces boulardii 250 MG CAP PO SCH (08:39)
[2019-10-26] MEDS ORDERED: Lisinopril/Hydrochlorothiazide 10 mg/12.5 mg Tablet PO SCH (09:00)
[2019-10-26] MEDS: fentaNYL Citrate/PF 2,000 MCG in Sodium Chloride 0.9% 60 ML IV SCH (11:11)
[2019-10-26] MEDS ORDERED: Vancomycin 1 GM in Premix Bag 1 BAG IVPB SCH (13:00)
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
[2019-10-26] MEDS: D5 1/2 NS w/20 mEq KCL 1,000 ML IV SCH ×2 (15:18→15:28)
[2019-10-26 18:37] LABS: Anisocytosis SLIGHT = 6-15 cells (100X) (0-5/hpf); Band 48 % (5-11); Hemoglobin 8.8 g/dL (12.0-16.0); Hypochromia SLIGHT = 6-15 cells (100X) (0-5/hpf); Lymphocytes 6 % (21-51); MDiff Complete? YES; Mean Corpuscular HGB CONC 33.3 g/dL (32.0-36.0); Mean Corpuscular Hemoglobin 30.6 pg (27.0-31.0); Mean Corpuscular Volume 91.7 fL (78.0-98.0); Mean Platelet Volume 8.8 fL (7.4-10.4); Metamyelocyte 1 % (0-0); Monocytes 2 % (0-10); Neutrophil 43 % (42-75); Nucleated RBC 1 % (0); Platelet Count 80 thou/uL (130-400); Platelet Morphology Comment Appears Decreased; Polychromasia MODERATE = 3-4 cells (100X) (0-2/hpf); Red Blood Cell (RBC) Count 2.88 mill/uL (4.20-5.40); Schistocytes SLIGHT = 2-5 cells (100X) (0-1/hpf); White Blood Cell (WBC) Count 10.4 thou/uL (4.8-10.8)
[2019-10-26 18:44] LABS: Anion Gap 11 mmol/L (10-20); BUN (Urea Nitrogen) 32 mg/dL (9.8-20.1); Calc. Creatinine Clearance 110 mL/min (70-130); Calcium 8.1 mg/dL (7.8-10.44); Carbon Dioxide 26 mmol/L (23-31); Chloride 117 mmol/L (98-107); Estimated GFR-MDRD 73; Glucose 130 mg/dL (80-115); Magnesium 2.2 mg/dL (1.6-2.6); Phosphorus 3.4 mg/dL (2.3-4.7); Potassium 3.6 mmol/L (3.5-5.1); Sodium 150 mmol/L (136-145)
[2019-10-26] MEDS ORDERED: Potassium Phosphate 15 MMOL in Sodium Chloride 0.9% 250 ML 250 ML IVPB SCH (20:00)
[2019-10-27] MEDS ORDERED: Propofol BOLUS 1,000 MG/100 ML VIAL IV PRN (00:32)
[2019-10-27] MEDS: Propofol 1,000 MG/100 ML VIAL IV PRN ×2 (00:36→07:34)
[2019-10-27] MEDS ORDERED: Ventilator Sedation Protocol 1 EACH FS SCH (00:45)
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
[2019-10-27] MEDS: Hydrocortisone Sod Succ/PF 100 mg/2 ml Vial IVP SCH ×3 (03:08→17:14)
[2019-10-27] MEDS: D5 1/2 NS w/20 mEq KCL 1,000 ML IV SCH ×2 (05:02→17:11)
[2019-10-27] MEDS: Acetaminophen 650 MG/20.3 ML UDCUP PO SCH ×3 (05:03→17:12)
[2019-10-27] MEDS: Metoprolol Tartrate 25 MG TAB PO SCH (05:03)
[2019-10-27 05:36] LABS: INR-International Normal Ratio 1.2; Prothrombin Time 15.2 SEC (12.0-14.7)
[2019-10-27 05:50] LABS: Band 27 % (5-11); Hemoglobin 8.7 g/dL (12.0-16.0); Lymphocytes 6 % (21-51); MDiff Complete? YES; Mean Corpuscular Hemoglobin 30.1 pg (27.0-31.0); Mean Corpuscular Volume 91.1 fL (78.0-98.0); Mean Platelet Volume 9.4 fL (7.4-10.4); Monocytes 2 % (0-10); Myelocyte 1 % (0-0); Neutrophil 64 % (42-75); Platelet Count 79 thou/uL (130-400); Platelet Morphology Comment Appears Decreased; RBC Distribution Width 13.9 % (11.5-14.5); White Blood Cell (WBC) Count 8.3 thou/uL (4.8-10.8)
[2019-10-27 05:56] LABS: Anion Gap 9 mmol/L (10-20); BUN (Urea Nitrogen) 31 mg/dL (9.8-20.1); Calc. Creatinine Clearance 122 mL/min (70-130); Calcium 7.9 mg/dL (7.8-10.44); Carbon Dioxide 27 mmol/L (23-31); Chloride 116 mmol/L (98-107); Estimated GFR-MDRD 82; Glucose 144 mg/dL (80-115); Magnesium 2.2 mg/dL (1.6-2.6); Phosphorus 3.1 mg/dL (2.3-4.7); Potassium 3.4 mmol/L (3.5-5.1); Sodium 149 mmol/L (136-145)
[2019-10-27] MEDS ORDERED: Potassium Phosphate 30 MMOL in Sodium Chloride 0.9% 100 ML IVPB SCH (07:45)
[2019-10-27] MEDS: Famotidine/PF 20 mg/2ml Vial SLOW IVP SCH ×2 (09:11→21:47)
[2019-10-27] MEDS: Hydrochlorothiazide 25 MG TAB PO SCH (09:11)
[2019-10-27] MEDS: Saccharomyces boulardii 250 MG CAP PO SCH (09:11)
[2019-10-27] MEDS: Gabapentin 300 MG CAP PO SCH ×3 (09:12→21:47)
[2019-10-27] MEDS: Amlodipine 5 MG TAB PO SCH (09:12)
[2019-10-27] MEDS: Donepezil HCl 10 MG TAB PO SCH (09:13)
[2019-10-27] MEDS ORDERED: Furosemide 40 MG/4 ML VIAL ONE (09:24)
[2019-10-27] MEDS ORDERED: Rocuronium Bromide 10 MG/ML (10ML VIAL) ONE (09:37)
[2019-10-27] MEDS ORDERED: PHENYLEPHRINE-NS 100 MCG/ML 10 ML SYRINGE ONE (09:37)
[2019-10-27] MEDS: fentaNYL Citrate/PF 2,000 MCG in Sodium Chloride 0.9% 60 ML IV SCH (09:38)
[2019-10-27] MEDS ORDERED: Lisinopril 10 MG TAB PO SCH (10:30)
[2019-10-27] MEDS: Metoprolol Tartrate 50 MG TAB PER TUBE SCH ×2 (10:41→21:47)
[2019-10-27] MEDS ORDERED: Fentanyl 100 MCG/2 ML VIAL ONE ×2 (11:57)
[2019-10-27] MEDS ORDERED: Phenylephrine 10 MG/ML VIAL ONE (11:57)
[2019-10-27] MEDS ORDERED: HYDROmorphone 0.5 MG/0.5 ML SYRINGE ONE (11:57)
[2019-10-27] MEDS ORDERED: CEFAZOLIN 2 GM in Premix Bag 1 BAG IVPB SCH (12:00)
[2019-10-27] MEDS: Lisinopril/Hydrochlorothiazide 10 mg/12.5 mg Tablet PER TUBE SCH (12:19)
--- NOTE | 2019-10-27 15:57 | RAD ---
Left ankle 3 views intraoperative fluoroscopy HISTORY: Ankle fracture. FINDINGS: Intraoperative fluoroscopy was provided for internal fixation as performed by Dr. العراقي . Spot fluoroscopic images show 2 long lag screws transfixing the medial malleolus in anatomic alignment. Fluoroscopy time 32 seconds.
--- NOTE | 2019-10-27 15:58 | RAD ---
EXAM: XR Humerus Lt 2 View STANDARD DATE: 10/27/2019 12:00 AM INDICATION: 4 views of the left humerus COMPARISON: Left humerus radiographs dated October 22, 2019 FINDING: Since the comparison there is been interval open reduction internal fixation of the comminu prosper fracture of the midshaft left humerus as well as the left distal humeral metadiaphyseal fracture. Fracture alignment is near anatomic. Radiocapitellar alignment appears within normal limits . The instrumentation projects in expected position. Total fluoroscopic time is 17.8 seconds. Total exposure was 0.80 mGy. IMPRESSION:ORIF of left humerus fractures
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
[2019-10-27 20:27] LABS: Mean Corpuscular HGB CONC 33.7 g/dL (32.0-36.0); Mean Corpuscular Hemoglobin 30.7 pg (27.0-31.0); Mean Corpuscular Volume 91.3 fL (78.0-98.0); Mean Platelet Volume 9.3 fL (7.4-10.4); Platelet Count 74 thou/uL (130-400); RBC Distribution Width 13.8 % (11.5-14.5); Red Blood Cell (RBC) Count 2.29 mill/uL (4.20-5.40)
[2019-10-27 20:33] LABS: INR-International Normal Ratio 1.2
[2019-10-27 20:49] LABS: Anion Gap 8 mmol/L (10-20); BUN (Urea Nitrogen) 31 mg/dL (9.8-20.1); Calc. Creatinine Clearance 122 mL/min (70-130); Calcium 7.2 mg/dL (7.8-10.44); Carbon Dioxide 28 mmol/L (23-31); Chloride 115 mmol/L (98-107); Estimated GFR-MDRD 82; Glucose 129 mg/dL (80-115); Phosphorus 3.2 mg/dL (2.3-4.7); Potassium 3.4 mmol/L (3.5-5.1); Sodium 148 mmol/L (136-145)
[2019-10-27 21:01] LABS: Band 16 % (5-11); Lymphocytes 19 % (21-51); MDiff Complete? YES; Monocytes 8 % (0-10); Neutrophil 57 % (42-75); Nucleated RBC 2 % (0); Platelet Morphology Comment Appears Decreased; White Blood Cell (WBC) Count 8.6 thou/uL (4.8-10.8)
[2019-10-27] MEDS ORDERED: Potassium Phosphate 30 MMOL in Sodium Chloride 0.9% 250 ML 250 ML IVPB SCH (21:45)
[2019-10-27] MEDS: CEFAZOLIN 2 GM in Premix Bag 1 BAG IVPB SCH (21:47)
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
[2019-10-28] MEDS: Acetaminophen 650 MG/20.3 ML UDCUP PO SCH ×4 (00:13→17:08)
[2019-10-28] MEDS: Propofol 1,000 MG/100 ML VIAL IV PRN (02:41)
[2019-10-28] MEDS: D5 1/2 NS w/20 mEq KCL 1,000 ML IV SCH ×3 (02:46→23:05)
[2019-10-28 04:30] LABS: INR-International Normal Ratio 1.2; Prothrombin Time 15.4 SEC (12.0-14.7)
[2019-10-28 05:24] LABS: Anion Gap 12 mmol/L (10-20); BUN (Urea Nitrogen) 31 mg/dL (9.8-20.1); Calc. Creatinine Clearance 119 mL/min (70-130); Calcium 7.1 mg/dL (7.8-10.44); Carbon Dioxide 26 mmol/L (23-31); Chloride 116 mmol/L (98-107); Estimated GFR-MDRD 80; Glucose 114 mg/dL (80-115); Magnesium 2.1 mg/dL (1.6-2.6); Phosphorus 4.1 mg/dL (2.3-4.7); Potassium 3.5 mmol/L (3.5-5.1); Sodium 150 mmol/L (136-145)
[2019-10-28 06:02] LABS: Hemoglobin 6.1 g/dL (12.0-16.0); Mean Corpuscular HGB CONC 33.3 g/dL (32.0-36.0); Mean Corpuscular Hemoglobin 30.3 pg (27.0-31.0); Mean Corpuscular Volume 90.9 fL (78.0-98.0); RBC Distribution Width 13.7 % (11.5-14.5); Red Blood Cell (RBC) Count 2.02 mill/uL (4.20-5.40)
[2019-10-28 06:08] LABS: Band 22 % (5-11); Eosinophils 1 % (0-10); Lymphocytes 15 % (21-51); MDiff Complete? YES; Mean Platelet Volume 9.7 fL (7.4-10.4); Metamyelocyte 1 % (0-0); Monocytes 10 % (0-10); Neutrophil 51 % (42-75); Nucleated RBC 9 % (0); Platelet Count 79 thou/uL (130-400); Platelet Morphology Comment Appears Decreased; White Blood Cell (WBC) Count 7.7 thou/uL (4.8-10.8)
[2019-10-28] MEDS: CEFAZOLIN 2 GM in Premix Bag 1 BAG IVPB SCH (06:24)
[2019-10-28] MEDS ORDERED: Potassium Phosphate 15 MMOL in Sodium Chloride 0.9% 250 ML 250 ML IVPB SCH (07:30)
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
[2019-10-28] MEDS: Metoprolol Tartrate 50 MG TAB PER TUBE SCH ×2 (08:11→20:52)
[2019-10-28] MEDS: Amlodipine 5 MG TAB PO SCH (08:11)
[2019-10-28] MEDS: Gabapentin 300 MG CAP PO SCH ×3 (08:11→20:52)
[2019-10-28] MEDS: Saccharomyces boulardii 250 MG CAP PO SCH (08:11)
[2019-10-28] MEDS: Donepezil HCl 10 MG TAB PO SCH (08:11)
[2019-10-28] MEDS: Famotidine/PF 20 mg/2ml Vial SLOW IVP SCH ×2 (08:14→20:52)
[2019-10-28] MEDS: Lisinopril/Hydrochlorothiazide 10 mg/12.5 mg Tablet PER TUBE SCH (08:16)
[2019-10-28] MEDS ORDERED: Furosemide 40 MG/4 ML VIAL ONE (10:31)
[2019-10-28 12:34] LABS: Hemoglobin 8.1 g/dL (12.0-16.0); Platelet Count 84 thou/uL (130-400)
[2019-10-28 15:20] LABS: Actual Bicarbonate (HCO3a) 27.3 mEq/L (22-28); Base Excess (BEa) 3.3 mEq/L (-2.0 to +3.0); CO2 Tension 38.7 mmHg (35.0-45.0); Calcium, Ionized 1.06 mmol/L (1.12-1.30); Carboxyhemoglobin (COHb) 1.6 gm% (0.0-3.0); Hemoglobin (Hb) 7.9 g/dL (12.0-16.0); O2 Tension (PaO2) 72.7 mmHg (> 80.0); pH, Arterial 7.47 (7.35-7.45)
[2019-10-28 15:31] LABS: Puncture Site RR
[2019-10-28 15:32] LABS: ALV-art Gradient 235.425 (0-20)
[2019-10-28] MEDS: Polyethylene Glycol 3350 17 GM Packet PO SCH (15:38)
[2019-10-28] MEDS: Senokot S 8.6-50 MG TAB PO SCH ×2 (15:38→20:52)
[2019-10-28] MEDS ORDERED: Calcium Chloride 1 GM/10 ML Abboject SYRINGE ONE (15:55)
[2019-10-28] MEDS ORDERED: Calcium Chloride 1 GM/10 ML Abboject SYRINGE IVP SCH (16:15)
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
[2019-10-28] MEDS: fentaNYL Citrate/PF 2,000 MCG in Sodium Chloride 0.9% 60 ML IV SCH (16:54)
[2019-10-28] MEDS: traMADol HCl 50 MG TAB PO SCH (17:04)
[2019-10-28] MEDS: Ascorbic Acid 500 mg Chewable Tablet PO SCH (17:07)
[2019-10-29] MEDS: Acetaminophen 650 MG/20.3 ML UDCUP PO SCH ×4 (00:10→18:24)
[2019-10-29] MEDS: traMADol HCl 50 MG TAB PO SCH ×4 (00:10→18:24)
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
[2019-10-29 05:27] LABS: Anion Gap 9 mmol/L (10-20); BUN (Urea Nitrogen) 28 mg/dL (9.8-20.1); Calc. Creatinine Clearance 126 mL/min (70-130); Calcium 7.6 mg/dL (7.8-10.44); Carbon Dioxide 28 mmol/L (23-31); Chloride 113 mmol/L (98-107); Estimated GFR-MDRD 85; Glucose 121 mg/dL (80-115); Phosphorus 2.9 mg/dL (2.3-4.7); Potassium 3.4 mmol/L (3.5-5.1); Sodium 147 mmol/L (136-145)
[2019-10-29 05:45] LABS: Band 27 % (5-11); Hemoglobin 7.1 g/dL (12.0-16.0); Lymphocytes 5 % (21-51); MDiff Complete? YES; Mean Corpuscular HGB CONC 33.8 g/dL (32.0-36.0); Mean Corpuscular Hemoglobin 30.5 pg (27.0-31.0); Mean Corpuscular Volume 90.3 fL (78.0-98.0); Mean Platelet Volume 9.8 fL (7.4-10.4); Metamyelocyte 2 % (0-0); Monocytes 1 % (0-10); Myelocyte 1 % (0-0); Neutrophil 64 % (42-75); Nucleated RBC 4 % (0); Platelet Count 89 thou/uL (130-400); Platelet Morphology Comment Appears Decreased; Polychromasia SLIGHT = 2-3 cells (100X) (0-2/hpf); Red Blood Cell (RBC) Count 2.31 mill/uL (4.20-5.40); White Blood Cell (WBC) Count 12.3 thou/uL (4.8-10.8)
[2019-10-29] MEDS: Propofol 1,000 MG/100 ML VIAL IV PRN (06:16)
--- NOTE | 2019-10-29 08:05 | ULT ---
EXAM: Bilateral lower extremity venous ultrasound HISTORY: Bilateral lower extremity pain and edema COMPARISON: None TECHNIQUE: Multiplanar grayscale and color Doppler images were obtained in a bilateral lower extremit y venous ultrasound. Spectral analysis of the Doppler waveforms were performed. FINDINGS: The bilateral common femoral vein, profunda femoral veins, superficial femoral veins, and p opliteal veins are normal in appearance without visible thrombus. These vessels demonstrate normal compression, flow, and augmentation. The bilateral posterior tibial veins and greater saphenous veins are patent without evidence of throm bus. IMPRESSION: No evidence of DVT.
--- NOTE | 2019-10-29 08:06 | RAD ---
PORTABLE CHEST: Date: 10/29/2019 HISTORY: Respiratory distress. COMPARISON: 10/28/2019 exam. FINDINGS: Endotracheal tube is in satisfactory position. Dobbhoff and NG tubes are below the hemidiaphragm. Floyd ateral chest tubes remain in place. Parenchymal lung changes are stable. IMPRESSION: Stable chest. POS: [facility]
[2019-10-29] MEDS ORDERED: Potassium Phosphate 30 MMOL in Sodium Chloride 0.9% 250 ML 250 ML IVPB SCH (08:15)
[2019-10-29] MEDS: Gabapentin 300 MG CAP PO SCH ×3 (08:52→21:06)
[2019-10-29] MEDS: Famotidine/PF 20 mg/2ml Vial SLOW IVP SCH ×2 (08:52→21:05)
[2019-10-29] MEDS: Ascorbic Acid 500 mg Chewable Tablet PO SCH ×2 (08:53→18:24)
[2019-10-29] MEDS: Saccharomyces boulardii 250 MG CAP PO SCH (08:55)
[2019-10-29] MEDS: D5 1/2 NS w/20 mEq KCL 1,000 ML IV SCH ×2 (09:42→18:50)
[2019-10-29] MEDS: Polyethylene Glycol 3350 17 GM Packet PO SCH (09:43)
[2019-10-29] MEDS: Senokot S 8.6-50 MG TAB PO SCH ×2 (09:43→21:43)
[2019-10-29] MEDS: Metoprolol Tartrate 50 MG TAB PER TUBE SCH ×2 (09:55→21:06)
[2019-10-29] MEDS: Lisinopril/Hydrochlorothiazide 10 mg/12.5 mg Tablet PER TUBE SCH (09:55)
[2019-10-29] MEDS: Donepezil HCl 10 MG TAB PO SCH (09:55)
[2019-10-29] MEDS: Amlodipine 5 MG TAB PO SCH (09:55)
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
[2019-10-29] MEDS: Hydrocortisone Sod Succ/PF 100 mg/2 ml Vial IVP SCH ×2 (18:25→21:06)
[2019-10-29] MEDS: fentaNYL Citrate/PF 2,000 MCG in Sodium Chloride 0.9% 60 ML IV SCH (21:06)
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
[2019-10-30] MEDS: Acetaminophen 650 MG/20.3 ML UDCUP PO SCH ×4 (01:29→17:04)
[2019-10-30] MEDS: traMADol HCl 50 MG TAB PO SCH ×4 (01:29→17:02)
[2019-10-30 04:31] LABS: Anion Gap 10 mmol/L (10-20); BUN (Urea Nitrogen) 24 mg/dL (9.8-20.1); Calc. Creatinine Clearance 138 mL/min (70-130); Calcium 7.6 mg/dL (7.8-10.44); Carbon Dioxide 29 mmol/L (23-31); Chloride 116 mmol/L (98-107); Estimated GFR-MDRD Greater than 90; Glucose 112 mg/dL (80-115); Magnesium 2.3 mg/dL (1.6-2.6); Phosphorus 2.4 mg/dL (2.3-4.7); Potassium 3.5 mmol/L (3.5-5.1); Sodium 151 mmol/L (136-145)
[2019-10-30] MEDS: Hydrocortisone Sod Succ/PF 100 mg/2 ml Vial IVP SCH ×4 (05:18→21:40)
[2019-10-30 05:19] LABS: Band 17 % (5-11); Hemoglobin 7.4 g/dL (12.0-16.0); Lymphocytes 8 % (21-51); MDiff Complete? YES; Mean Corpuscular Hemoglobin 30.1 pg (27.0-31.0); Mean Corpuscular Volume 91.4 fL (78.0-98.0); Mean Platelet Volume 9.7 fL (7.4-10.4); Monocytes 2 % (0-10); Neutrophil 73 % (42-75); Platelet Count 130 thou/uL (130-400); RBC Distribution Width 14.1 % (11.5-14.5); Red Blood Cell (RBC) Count 2.44 mill/uL (4.20-5.40); White Blood Cell (WBC) Count 14.8 thou/uL (4.8-10.8)
[2019-10-30 06:55] LABS: Actual Bicarbonate (HCO3a) 27.3 mEq/L (22-28); Base Excess (BEa) 3.7 mEq/L (-2.0 to +3.0); CO2 Tension 36.7 mmHg (35.0-45.0); Calcium, Ionized 1.11 mmol/L (1.12-1.30); Carboxyhemoglobin (COHb) 2.2 gm% (0.0-3.0); Hemoglobin (Hb) 7.4 g/dL (12.0-16.0); O2 Tension (PaO2) 76.2 mmHg (> 80.0); Potassium - ABG Lab 3.44 mmol/L (3.70-5.30); pH, Arterial 7.49 (7.35-7.45)
[2019-10-30 06:56] LABS: ALV-art Gradient 234.425 (0-20); Puncture Site RRA
[2019-10-30] MEDS ORDERED: Midazolam HCl 2 mg/2 ml Vial SLOW IVP SCH ×2 (07:00→10:00)
[2019-10-30] MEDS ORDERED: Fentanyl 100 MCG/2 ML VIAL SLOW IVP SCH ×2 (07:00→10:00)
[2019-10-30] MEDS ORDERED: Lidocaine 1% (PF) 30 ML VIAL SC SCH (07:00)
[2019-10-30] MEDS ORDERED: Potassium Phosphate 30 MMOL in Sodium Chloride 0.9% 250 ML 250 ML IVPB SCH (07:15)
[2019-10-30] MEDS ORDERED: Midazolam HCl 2 mg/2 ml Vial ONE (09:08)
[2019-10-30] MEDS ORDERED: Lidocaine 1% w/Epinephrine 1:100K 20 ML VIAL FS SCH (10:45)
[2019-10-30] MEDS ORDERED: Vecuronium 10 MG VIAL IV SCH (10:45)
[2019-10-30] MEDS: Famotidine/PF 20 mg/2ml Vial SLOW IVP SCH ×2 (10:58→20:16)
[2019-10-30] MEDS: Polyethylene Glycol 3350 17 GM Packet PO SCH (10:58)
[2019-10-30] MEDS: Amlodipine 5 MG TAB PO SCH (11:00)
[2019-10-30] MEDS: Donepezil HCl 10 MG TAB PO SCH (11:00)
[2019-10-30] MEDS: Ascorbic Acid 500 mg Chewable Tablet PO SCH ×2 (11:00→17:03)
[2019-10-30] MEDS: Gabapentin 300 MG CAP PO SCH ×3 (11:00→20:16)
[2019-10-30] MEDS: Saccharomyces boulardii 250 MG CAP PO SCH (11:00)
[2019-10-30] MEDS: Metoprolol Tartrate 50 MG TAB PER TUBE SCH ×2 (11:00→20:16)
[2019-10-30] MEDS: Lisinopril/Hydrochlorothiazide 10 mg/12.5 mg Tablet PER TUBE SCH (11:03)
[2019-10-30] MEDS: Senokot S 8.6-50 MG TAB PO SCH ×2 (11:04→20:16)
--- NOTE | 2019-10-30 11:17 | RAD ---
EXAM: Single view of the chest HISTORY: Chest tube placement COMPARISON: 10/29/2019 FINDINGS: Single view of the chest shows an enlarged cardiomediastinal silhouette. A tracheostomy diaz s been placed with its tip in good position within the trachea. A Dobbhoff tube courses off the inferior aspect of the film. There are bilateral chest tubes without evidence of pneumothorax. Increa sed interstitial markings are present. There may be small bilateral pleural effusions. Degenerative changes are seen in the spine. IMPRESSION: 1. Interval placement of tracheostomy without evidence of complication. 2. Bilateral pleural effusions
[2019-10-30 13:38] LABS: Anion Gap 12 mmol/L (10-20); BUN (Urea Nitrogen) 25 mg/dL (9.8-20.1); Calc. Creatinine Clearance 122 mL/min (70-130); Calcium 7.6 mg/dL (7.8-10.44); Carbon Dioxide 25 mmol/L (23-31); Chloride 119 mmol/L (98-107); Estimated GFR-MDRD 82; Glucose 143 mg/dL (80-115); Potassium 4.7 mmol/L (3.5-5.1); Sodium 151 mmol/L (136-145)
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
[2019-10-30] MEDS: Sulfameth/Trimethoprim DS 800-160mg TAB PO SCH (20:16)
--- NOTE | 2019-10-30 20:33 | RAD ---
PORTABLE CHEST: 10/30/19 INDICATIONS: Fever. COMPARISON: 10/30/19 at 10:30 a.m. Tracheostomy device and NG tube remain in place. Bilateral chest tubes again noted. Left basilar inf iltrate and/or atelectasis again noted. Mild vascular congestion again noted. IMPRESSION: No significant interval change. POS: [facility]
[2019-10-30] MEDS: Ibuprofen 600 MG TAB PO PRN (21:39)
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
[2019-10-31] MEDS: traMADol HCl 50 MG TAB PO SCH ×4 (00:21→17:32)
[2019-10-31] MEDS: Acetaminophen 650 MG/20.3 ML UDCUP PO SCH ×4 (00:21→20:46)
[2019-10-31] MEDS: Piperacillin/Tazobactam 3.375 GM in Sodium Chloride 0.9% 100 ML IVPB SCH ×4 (00:21→17:33)
[2019-10-31] MEDS ORDERED: Sodium Chloride 0.45% 1,000 ML IV SCH (02:00)
[2019-10-31] MEDS: Hydrocortisone Sod Succ/PF 100 mg/2 ml Vial IVP SCH ×4 (04:33→21:00)
[2019-10-31 05:09] LABS: ALT (SGPT) 92 U/L (8-55); AST (SGOT) 94 U/L (5-34); Alkaline Phosphatase 179 U/L (40-110); Bilirubin, Direct 1.8 mg/dL (0.1-0.3); Bilirubin, Total 2.9 mg/dL (0.2-1.2); Protein, Total 4.5 g/dL (6.0-8.3)
[2019-10-31 05:13] LABS: Anion Gap 8 mmol/L (10-20); BUN (Urea Nitrogen) 28 mg/dL (9.8-20.1); Calc. Creatinine Clearance 121 mL/min (70-130); Calcium 7.3 mg/dL (7.8-10.44); Carbon Dioxide 29 mmol/L (23-31); Chloride 118 mmol/L (98-107); Estimated GFR-MDRD 81; Glucose 150 mg/dL (80-115); Magnesium 2.4 mg/dL (1.6-2.6); Potassium 3.5 mmol/L (3.5-5.1); Sodium 151 mmol/L (136-145)
[2019-10-31 05:15] LABS: Band 3 % (5-11); Hemoglobin 6.9 g/dL (12.0-16.0); Hypochromia SLIGHT = 6-15 cells (100X) (0-5/hpf); Lymphocytes 7 % (21-51); MDiff Complete? YES; Mean Corpuscular HGB CONC 31.9 g/dL (32.0-36.0); Mean Corpuscular Hemoglobin 29.7 pg (27.0-31.0); Mean Corpuscular Volume 93.3 fL (78.0-98.0); Mean Platelet Volume 8.8 fL (7.4-10.4); Monocytes 2 % (0-10); Neutrophil 88 % (42-75); Platelet Count 171 thou/uL (130-400); Platelet Morphology Comment Appears Adequate; RBC Distribution Width 14.7 % (11.5-14.5); Red Blood Cell (RBC) Count 2.31 mill/uL (4.20-5.40); White Blood Cell (WBC) Count 13.9 thou/uL (4.8-10.8)
[2019-10-31 06:25] LABS: Bilirubin Small (Negative); Blood, Urine Large (Negative); Glucose, Urine (Dipstick) Negative (Negative); Leukocyte Negative (Negative); Nitrite Negative (Negative); Protein, Urine (Dipstick) 30 mg/dL (Neg-Trace)
[2019-10-31 06:44] LABS: Clarity Cloudy (Clear)
[2019-10-31 06:47] LABS: Bacteria/HPF 1+ HPF (None Seen); Squamous Epithelial 0-3 HPF (0-3); WBC/HPF 0-3 HPF (0-3)
--- NOTE | 2019-10-31 07:45 | RAD ---
CHEST 1 VIEW: Date: 10/31/2019 INDICATION: History of chest tube placement. COMPARISON: Prior exam dated 10/30/2019. FINDINGS/IMPRESSION: There are bilateral thoracostomy tubes. There is a feeding tube and tracheostomy tube in place. No pn eumothorax is evident. Cardiomegaly persists. Left basilar air space opacity is similar appearing. Os seous structures are unchanged. POS: [facility]
[2019-10-31] MEDS: Ascorbic Acid 500 mg Chewable Tablet PO SCH ×2 (08:37→16:40)
[2019-10-31] MEDS: Saccharomyces boulardii 250 MG CAP PO SCH (08:38)
[2019-10-31] MEDS: Gabapentin 300 MG CAP PO SCH ×3 (08:38→20:46)
[2019-10-31] MEDS: Amlodipine 5 MG TAB PO SCH (08:38)
[2019-10-31] MEDS: Metoprolol Tartrate 50 MG TAB PER TUBE SCH ×2 (08:38→20:46)
[2019-10-31] MEDS: Donepezil HCl 10 MG TAB PO SCH (08:38)
[2019-10-31] MEDS: Lisinopril/Hydrochlorothiazide 10 mg/12.5 mg Tablet PER TUBE SCH (08:39)
[2019-10-31] MEDS: Famotidine/PF 20 mg/2ml Vial SLOW IVP SCH ×2 (08:39→20:46)
[2019-10-31] MEDS ORDERED: Dextrose 5% in Water 1,000 ML IV PRN (08:43)
[2019-10-31] MEDS: Senokot S 8.6-50 MG TAB PO SCH ×2 (08:45→20:46)
[2019-10-31] MEDS ORDERED: Potassium Chloride 40 MEQ in Sodium Chloride 0.9% 250 ML 250 ML IVPB SCH (14:00)
[2019-10-31] MEDS: Sulfameth/Trimethoprim DS 800-160mg TAB PO SCH (19:12)
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
[2019-10-31] MEDS: HumaLOG 300 UNITS/3 ML VIAL SC PRN (21:00)
[2019-11-01] MEDS: traMADol HCl 50 MG TAB PO SCH ×5 (00:33→23:34)
[2019-11-01] MEDS: Piperacillin/Tazobactam 3.375 GM in Sodium Chloride 0.9% 100 ML IVPB SCH ×5 (00:34→23:33)
[2019-11-01] MEDS: Ibuprofen 600 MG TAB PO PRN (01:16)
[2019-11-01] MEDS: Hydrocortisone Sod Succ/PF 100 mg/2 ml Vial IVP SCH ×4 (03:53→21:00)
[2019-11-01] MEDS: Acetaminophen 650 MG/20.3 ML UDCUP PO SCH ×4 (03:53→20:07)
[2019-11-01 05:40] LABS: Anion Gap 9 mmol/L (10-20); BUN (Urea Nitrogen) 27 mg/dL (9.8-20.1); Calc. Creatinine Clearance 139 mL/min (70-130); Calcium 7.6 mg/dL (7.8-10.44); Carbon Dioxide 27 mmol/L (23-31); Chloride 120 mmol/L (98-107); Estimated GFR-MDRD Greater than 90; Glucose 149 mg/dL (80-115); Hemoglobin 8.2 g/dL (12.0-16.0); Lymphocytes 6 % (21-51); MDiff Complete? YES; Magnesium 2.6 mg/dL (1.6-2.6); Mean Corpuscular HGB CONC 33.1 g/dL (32.0-36.0); Mean Corpuscular Hemoglobin 30.7 pg (27.0-31.0); Mean Corpuscular Volume 92.8 fL (78.0-98.0); Metamyelocyte 2 % (0-0); Monocytes 1 % (0-10); Neutrophil 91 % (42-75); Nucleated RBC 2 % (0); Phosphorus 2.3 mg/dL (2.3-4.7); Platelet Count 182 thou/uL (130-400); Platelet Morphology Comment Appears Adequate; Potassium 3.4 mmol/L (3.5-5.1); RBC Distribution Width 14.7 % (11.5-14.5); RBC Morphology Normal; Red Blood Cell (RBC) Count 2.66 mill/uL (4.20-5.40); Sodium 153 mmol/L (136-145); White Blood Cell (WBC) Count 15.2 thou/uL (4.8-10.8)
[2019-11-01] MEDS ORDERED: Potassium Chloride 40 MEQ in Premix Bag 1 BAG IVPB SCH (06:00)
[2019-11-01] MEDS: Gabapentin 300 MG CAP PO SCH ×3 (09:30→20:08)
[2019-11-01] MEDS: Famotidine/PF 20 mg/2ml Vial SLOW IVP SCH ×2 (09:30→20:08)
[2019-11-01] MEDS: Metoprolol Tartrate 50 MG TAB PER TUBE SCH ×2 (09:31→20:08)
[2019-11-01] MEDS: Donepezil HCl 10 MG TAB PO SCH (09:31)
[2019-11-01] MEDS: Amlodipine 5 MG TAB PO SCH (09:31)
[2019-11-01] MEDS: Ascorbic Acid 500 mg Chewable Tablet PO SCH ×2 (09:31→16:45)
[2019-11-01] MEDS: Saccharomyces boulardii 250 MG CAP PO SCH (09:31)
[2019-11-01] MEDS: Lisinopril/Hydrochlorothiazide 10 mg/12.5 mg Tablet PER TUBE SCH (09:32)
[2019-11-01] MEDS: Senokot S 8.6-50 MG TAB PO SCH ×2 (09:32→21:11)
--- NOTE | 2019-11-01 09:39 | RAD ---
PORTABLE CHEST: HISTORY: Respiratory distress. COMPARISON: Prior day's exam. FINDINGS: Heart size appears slightly enlarged. Tracheostomy and Dobbhoff feeding tubes are again noted. Ches t tubes remain in place. Overall appearance is essentially stable. IMPRESSION: Stable chest. POS: [facility]
[2019-11-01] MEDS: Metamucil PACK PO SCH ×2 (13:57→20:07)
[2019-11-01] MEDS ORDERED: Fentanyl BOLUS 250 ML IVPB PRN (16:04)
[2019-11-01] MEDS ORDERED: fentaNYL Citrate/PF 2,000 MCG in Sodium Chloride 0.9% 60 ML IV SCH (16:15)
[2019-11-02] MEDS: HumaLOG 300 UNITS/3 ML VIAL SC PRN ×2 (00:16→13:28)
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
[2019-11-02] MEDS: Acetaminophen 650 MG/20.3 ML UDCUP PO SCH ×4 (03:13→20:40)
[2019-11-02] MEDS: Hydrocortisone Sod Succ/PF 100 mg/2 ml Vial IVP SCH ×3 (03:14→17:41)
[2019-11-02] MEDS: Dextrose 5% in Water 1,000 ML IV SCH ×2 (05:04→17:27)
[2019-11-02] MEDS: Piperacillin/Tazobactam 3.375 GM in Sodium Chloride 0.9% 100 ML IVPB SCH ×4 (05:20→23:46)
[2019-11-02] MEDS: traMADol HCl 50 MG TAB PO SCH ×4 (05:21→23:44)
[2019-11-02 07:38] LABS: Anion Gap 8 mmol/L (10-20); BUN (Urea Nitrogen) 24 mg/dL (9.8-20.1); Calc. Creatinine Clearance 141 mL/min (70-130); Calcium 7.5 mg/dL (7.8-10.44); Carbon Dioxide 28 mmol/L (23-31); Chloride 117 mmol/L (98-107); Estimated GFR-MDRD Greater than 90; Glucose 163 mg/dL (80-115); Hemoglobin 8.3 g/dL (12.0-16.0); Magnesium 2.4 mg/dL (1.6-2.6); Mean Corpuscular HGB CONC 33.3 g/dL (32.0-36.0); Mean Corpuscular Hemoglobin 31.2 pg (27.0-31.0); Mean Corpuscular Volume 93.5 fL (78.0-98.0); Phosphorus 2.3 mg/dL (2.3-4.7); Red Blood Cell (RBC) Count 2.66 mill/uL (4.20-5.40); Sodium 150 mmol/L (136-145)
[2019-11-02] MEDS ORDERED: Potassium Phosphate 30 MMOL in Sodium Chloride 0.9% 500 ML IVPB SCH (07:45)
[2019-11-02 08:25] LABS: Eosinophils 1 % (0-10); Lymphocytes 1 % (21-51); MDiff Complete? YES; Mean Platelet Volume 8.8 fL (7.4-10.4); Monocytes 3 % (0-10); Neutrophil 95 % (42-75); Nucleated RBC 2 % (0); Platelet Count 222 thou/uL (130-400); Platelet Morphology Comment Appears Adequate; Polychromasia SLIGHT = 2-3 cells (100X) (0-2/hpf); White Blood Cell (WBC) Count 15.8 thou/uL (4.8-10.8)
[2019-11-02] MEDS: Morphine 2 MG/ML SYRINGE SLOW IVP PRN (08:50)
[2019-11-02] MEDS: Saccharomyces boulardii 250 MG CAP PO SCH (08:57)
[2019-11-02] MEDS: Ascorbic Acid 500 mg Chewable Tablet PO SCH ×2 (08:57→16:31)
[2019-11-02] MEDS: Famotidine/PF 20 mg/2ml Vial SLOW IVP SCH ×2 (08:58→20:40)
[2019-11-02] MEDS: Gabapentin 300 MG CAP PO SCH ×3 (08:59→20:40)
[2019-11-02] MEDS: Lisinopril/Hydrochlorothiazide 10 mg/12.5 mg Tablet PER TUBE SCH (08:59)
[2019-11-02] MEDS: Amlodipine 5 MG TAB PO SCH (08:59)
[2019-11-02] MEDS: Donepezil HCl 10 MG TAB PO SCH (09:00)
[2019-11-02] MEDS: Metoprolol Tartrate 50 MG TAB PER TUBE SCH ×2 (09:00→20:40)
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
[2019-11-02] MEDS: Senokot S 8.6-50 MG TAB PO SCH ×2 (10:26→20:41)
[2019-11-02] MEDS: Metamucil PACK PO SCH ×2 (10:26→20:41)
--- NOTE | 2019-11-02 10:42 | RAD ---
PORTABLE CHEST: Date: 11/02/2019 COMPARISON: Prior day's study. HISTORY: Respiratory distress. FINDINGS: Heart size is enlarged. Tracheostomy tube is in place. Dobbhoff feeding tube is seen below the hemidi aphragm. The parenchymal lung changes appear fairly similar to the prior study. The left chest tube h as been removed. I do not see any definite pneumothorax on this exam. IMPRESSION: Essentially stable chest other than removal of the left-sided chest tube. POS: [facility]
[2019-11-02] MEDS ORDERED: Amlodipine 5 MG TAB PO SCH (16:25)
[2019-11-02] MEDS: Cyclobenzaprine 10 MG TAB PO PRN (16:29)
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
[2019-11-03] MEDS: Cyclobenzaprine 10 MG TAB PO PRN ×2 (01:54→23:37)
[2019-11-03] MEDS: Acetaminophen 650 MG/20.3 ML UDCUP PO SCH ×4 (01:54→20:31)
[2019-11-03] MEDS: Morphine 2 MG/ML SYRINGE SLOW IVP PRN ×3 (01:54→23:37)
[2019-11-03 05:34] LABS: #Eosinphils 0.1 thou/uL (0.0-0.7); #Monocytes 0.4 thou/uL (0.11-0.59); #Neutrophils 8.8 thou/uL (1.40-6.50); %Basophils 0.2 % (0.0-1.0); %Eosinophils 1.4 % (0.0-10.0); %Lymphocytes 9.8 % (21.0-51.0); %Monocytes 3.5 % (0.0-10.0); %Neutrophils 85.1 % (42.0-75.0); Hemoglobin 7.6 g/dL (12.0-16.0); Mean Corpuscular HGB CONC 33.6 g/dL (32.0-36.0); Mean Corpuscular Hemoglobin 31.5 pg (27.0-31.0); Mean Corpuscular Volume 93.6 fL (78.0-98.0); Mean Platelet Volume 8.7 fL (7.4-10.4); Platelet Count 227 thou/uL (130-400); RBC Distribution Width 15.8 % (11.5-14.5); White Blood Cell (WBC) Count 10.3 thou/uL (4.8-10.8)
[2019-11-03 05:53] LABS: Anion Gap 9 mmol/L (10-20); BUN (Urea Nitrogen) 21 mg/dL (9.8-20.1); Calc. Creatinine Clearance 156 mL/min (70-130); Calcium 7.2 mg/dL (7.8-10.44); Carbon Dioxide 28 mmol/L (23-31); Chloride 115 mmol/L (98-107); Estimated GFR-MDRD Greater than 90; Glucose 142 mg/dL (80-115); Magnesium 2.2 mg/dL (1.6-2.6); Phosphorus 2.4 mg/dL (2.3-4.7); Sodium 149 mmol/L (136-145)
[2019-11-03 05:58] LABS: Potassium 2.9 mmol/L (3.5-5.1)
[2019-11-03] MEDS: Piperacillin/Tazobactam 3.375 GM in Sodium Chloride 0.9% 100 ML IVPB SCH ×4 (06:02→23:36)
[2019-11-03] MEDS: traMADol HCl 50 MG TAB PO SCH ×4 (06:02→23:36)
[2019-11-03] MEDS ORDERED: Potassium Chloride 40 MEQ in Premix Bag 1 BAG IVPB SCH (07:00)
[2019-11-03] MEDS: Saccharomyces boulardii 250 MG CAP PO SCH (08:00)
[2019-11-03] MEDS: Famotidine/PF 20 mg/2ml Vial SLOW IVP SCH (08:00)
[2019-11-03] MEDS: Gabapentin 300 MG CAP PO SCH ×3 (08:01→20:31)
[2019-11-03] MEDS: Lisinopril/Hydrochlorothiazide 10 mg/12.5 mg Tablet PER TUBE SCH (08:01)
[2019-11-03] MEDS: Metoprolol Tartrate 50 MG TAB PER TUBE SCH ×2 (08:01→20:31)
[2019-11-03] MEDS: Donepezil HCl 10 MG TAB PO SCH (08:01)
[2019-11-03] MEDS: Ascorbic Acid 500 mg Chewable Tablet PO SCH ×2 (08:01→17:44)
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
--- NOTE | 2019-11-03 08:36 | RAD ---
CHEST 1 VIEW: HISTORY: Followup. COMPARISON: Radiograph of prior day. FINDINGS: Tracheostomy tube is similar. The feeding tube is below the diaphragm, out of the field of view. Ri ght-side thoracostomy tube is similar. Numerous rib fractures. Heart size is enlarged. The mediastinum is widened. IMPRESSION: Similar examination of the chest. POS: [facility]
[2019-11-03] MEDS ORDERED: Amlodipine 10 MG TAB PO SCH (09:00)
[2019-11-03] MEDS: Metamucil PACK PO SCH ×2 (09:04→20:32)
[2019-11-03] MEDS: Famotidine 20 MG TAB PO SCH ×2 (09:04→20:32)
[2019-11-03] MEDS: Senokot S 8.6-50 MG TAB PO SCH ×2 (09:05→20:32)
[2019-11-03 10:46] VITALS: BMI 38.2
[2019-11-03 12:20] LABS: Anion Gap 11 mmol/L (10-20); BUN (Urea Nitrogen) 18 mg/dL (9.8-20.1); Calc. Creatinine Clearance 178 mL/min (70-130); Calcium 7.5 mg/dL (7.8-10.44); Carbon Dioxide 27 mmol/L (23-31); Chloride 116 mmol/L (98-107); Estimated GFR-MDRD Greater than 90; Glucose 118 mg/dL (80-115); Sodium 150 mmol/L (136-145)
[2019-11-03] MEDS: Dextrose 5% in Water 1,000 ML IV SCH (14:09)
[2019-11-03] MEDS ORDERED: Furosemide 40 MG/4 ML VIAL SLOW IVP SCH (14:30)
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
[2019-11-03 15:00] LABS: Anion Gap 11 mmol/L (10-20); BUN (Urea Nitrogen) 17 mg/dL (9.8-20.1); Calc. Creatinine Clearance 171 mL/min (70-130); Calcium 7.7 mg/dL (7.8-10.44); Carbon Dioxide 27 mmol/L (23-31); Chloride 115 mmol/L (98-107); Estimated GFR-MDRD Greater than 90; Glucose 128 mg/dL (80-115); Magnesium 2.3 mg/dL (1.6-2.6); Phosphorus 2.4 mg/dL (2.3-4.7); Potassium 3.8 mmol/L (3.5-5.1); Sodium 149 mmol/L (136-145)
[2019-11-03] MEDS: cloNIDine 0.1 MG TAB PO SCH ×2 (17:44→23:38)
[2019-11-03] MEDS: Enoxaparin Sodium 30 MG/0.3 ML SYRINGE SC SCH (20:31)
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
[2019-11-04] MEDS: Acetaminophen 650 MG/20.3 ML UDCUP PO SCH ×3 (03:24→14:26)
[2019-11-04] MEDS: Morphine 2 MG/ML SYRINGE SLOW IVP PRN (03:46)
[2019-11-04 04:00] LABS: #Eosinphils 0.1 thou/uL (0.0-0.7); #Lymphocytes 1.4 thou/uL (1.20-3.40); #Monocytes 0.5 thou/uL (0.11-0.59); #Neutrophils 9.8 thou/uL (1.40-6.50); %Basophils 0.4 % (0.0-1.0); %Eosinophils 1.2 % (0.0-10.0); %Lymphocytes 11.9 % (21.0-51.0); %Monocytes 4.1 % (0.0-10.0); %Neutrophils 82.4 % (42.0-75.0); Hemoglobin 8.6 g/dL (12.0-16.0); Mean Corpuscular Hemoglobin 31.4 pg (27.0-31.0); Mean Corpuscular Volume 95.4 fL (78.0-98.0); Mean Platelet Volume 8.6 fL (7.4-10.4); Platelet Count 290 thou/uL (130-400); RBC Distribution Width 17.4 % (11.5-14.5); Red Blood Cell (RBC) Count 2.74 mill/uL (4.20-5.40); White Blood Cell (WBC) Count 11.9 thou/uL (4.8-10.8)
[2019-11-04 04:17] LABS: Anion Gap 8 mmol/L (10-20); BUN (Urea Nitrogen) 20 mg/dL (9.8-20.1); Calc. Creatinine Clearance 156 mL/min (70-130); Calcium 7.4 mg/dL (7.8-10.44); Carbon Dioxide 30 mmol/L (23-31); Chloride 111 mmol/L (98-107); Estimated GFR-MDRD Greater than 90; Glucose 138 mg/dL (80-115); Magnesium 2.2 mg/dL (1.6-2.6); Phosphorus 2.8 mg/dL (2.3-4.7); Potassium 3.3 mmol/L (3.5-5.1); Sodium 146 mmol/L (136-145)
[2019-11-04] MEDS ORDERED: Lactated Ringer's 500 ML IV SCH (05:00)
[2019-11-04] MEDS ORDERED: Potassium Chloride 40 MEQ in Premix Bag 1 BAG IVPB SCH (05:30)
[2019-11-04] MEDS: Piperacillin/Tazobactam 3.375 GM in Sodium Chloride 0.9% 100 ML IVPB SCH ×3 (05:42→18:04)
[2019-11-04] MEDS: Furosemide 40 MG/4 ML VIAL SLOW IVP SCH ×2 (05:43→14:24)
[2019-11-04] MEDS: traMADol HCl 50 MG TAB PO SCH ×3 (05:44→18:03)
[2019-11-04] MEDS: cloNIDine 0.1 MG TAB PO SCH ×3 (05:53→18:05)
[2019-11-04] MEDS ORDERED: Furosemide 40 MG/4 ML VIAL SLOW IVP SCH (06:00)
[2019-11-04 07:23] VITALS: BP 122/55
[2019-11-04] MEDS ORDERED: Amlodipine 5 MG TAB PO SCH (08:25)
[2019-11-04] MEDS ORDERED: Lisinopril/Hydrochlorothiazide 10 mg/12.5 mg Tablet PER TUBE SCH (09:00)
[2019-11-04] MEDS ORDERED: Lisinopril/Hydrochlorothiazide 20/25 mg Tablet PO SCH (09:00)
[2019-11-04] MEDS: Ascorbic Acid 500 mg Chewable Tablet PO SCH ×2 (09:44→18:04)
[2019-11-04] MEDS: Senokot S 8.6-50 MG TAB PO SCH (09:45)
[2019-11-04] MEDS: Metamucil PACK PO SCH (09:45)
[2019-11-04] MEDS: Saccharomyces boulardii 250 MG CAP PO SCH (09:45)
[2019-11-04] MEDS: Donepezil HCl 10 MG TAB PO SCH (09:46)
[2019-11-04] MEDS: Famotidine 20 MG TAB PO SCH (09:46)
[2019-11-04] MEDS: Enoxaparin Sodium 30 MG/0.3 ML SYRINGE SC SCH (09:46)
[2019-11-04] MEDS: Gabapentin 300 MG CAP PO SCH ×2 (09:46→14:26)
[2019-11-04] MEDS: Metoprolol Tartrate 50 MG TAB PER TUBE SCH (09:46)
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
[2019-11-04] MEDS: Dextrose 5% in Water 1,000 ML IV SCH (13:56)
[2019-11-04 16:57] VITALS: TEMP 99.2
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
== END 2019-11-04 19:15 | DRG 3 ==
LOC: ERS 12:03 → CCU 12:44
PROVIDERS: ADMIT Surgery; ATTEND Surgery
PROC: 5A1955Z Respiratory Ventilation, Greater than 96 Consecutive Hours (ICD-10-PCS; 2019-10-22)
PROC: 0BH17EZ Insertion of Endotracheal Airway into Trachea, Via Natural or Artificial Opening (ICD-10-PCS; 2019-10-22)
PROC: 0W9930Z Drainage of Right Pleural Cavity with Drainage Device, Percutaneous Approach (ICD-10-PCS; 2019-10-22)
PROC: 03HY32Z Insertion of Monitoring Device into Upper Artery, Percutaneous Approach (ICD-10-PCS; 2019-10-22)
PROC: 02HV33Z Insertion of Infusion Device into Superior Vena Cava, Percutaneous Approach (ICD-10-PCS; 2019-10-22)
PROC: B4101ZZ Fluoroscopy of Abdominal Aorta using Low Osmolar Contrast (ICD-10-PCS; 2019-10-22)
PROC: B41B1ZZ Fluoroscopy of Other Intra-Abdominal Arteries using Low Osmolar Contrast (ICD-10-PCS; 2019-10-22)
PROC: B4141ZZ Fluoroscopy of Superior Mesenteric Artery using Low Osmolar Contrast (ICD-10-PCS; 2019-10-22)
PROC: B4131ZZ Fluoroscopy of Splenic Arteries using Low Osmolar Contrast (ICD-10-PCS; 2019-10-22)
PROC: 3E043XZ Introduction of Vasopressor into Central Vein, Percutaneous Approach (ICD-10-PCS; 2019-10-22)
PROC: 0W9B30Z Drainage of Left Pleural Cavity with Drainage Device, Percutaneous Approach (ICD-10-PCS; 2019-10-23)
PROC: 0DTJ0ZZ Resection of Appendix, Open Approach (ICD-10-PCS; 2019-10-24)
PROC: 0FQ00ZZ Repair Liver, Open Approach (ICD-10-PCS; 2019-10-24)
PROC: 0DCW0ZZ Extirpation of Matter from Peritoneum, Open Approach (ICD-10-PCS; 2019-10-24)
PROC: 0D9670Z Drainage of Stomach with Drainage Device, Via Natural or Artificial Opening (ICD-10-PCS; 2019-10-24)
PROC: 0PSG04Z Reposition Left Humeral Shaft with Internal Fixation Device, Open Approach (ICD-10-PCS; 2019-10-27)
PROC: 0QSH04Z Reposition Left Tibia with Internal Fixation Device, Open Approach (ICD-10-PCS; 2019-10-27)
PROC: 0B113F4 Bypass Trachea to Cutaneous with Tracheostomy Device, Percutaneous Approach (ICD-10-PCS; principal; 2019-10-30)
DX: S36.113A Laceration of liver, unspecified degree, initial encounter (principal); S32.492A Other specified fracture of left acetabulum, initial encounter for closed fracture; J96.00 Acute respiratory failure, unspecified whether with hypoxia or hypercapnia; J15.0 Pneumonia due to Klebsiella pneumoniae; A41.9 Sepsis, unspecified organism; R65.21 Severe sepsis with septic shock; S27.1XXA Traumatic hemothorax, initial encounter; T79.4XXA Traumatic shock, initial encounter; S42.492A Other displaced fracture of lower end of left humerus, initial encounter for closed fracture; S32.018A Other fracture of first lumbar vertebra, initial encounter for closed fracture; S32.028A Other fracture of second lumbar vertebra, initial encounter for closed fracture; S32.038A Other fracture of third lumbar vertebra, initial encounter for closed fracture; S22.018A Other fracture of first thoracic vertebra, initial encounter for closed fracture; S22.068A Other fracture of T7-T8 thoracic vertebra, initial encounter for closed fracture; S12.690A Other displaced fracture of seventh cervical vertebra, initial encounter for closed fracture; S22.21XA Fracture of manubrium, initial encounter for closed fracture; S32.592A Other specified fracture of left pubis, initial encounter for closed fracture; S22.43XA Multiple fractures of ribs, bilateral, initial encounter for closed fracture; S32.591A Other specified fracture of right pubis, initial encounter for closed fracture; S32.10XA Unspecified fracture of sacrum, initial encounter for closed fracture; S22.088A Other fracture of T11-T12 vertebra, initial encounter for closed fracture; S42.392A Other fracture of shaft of left humerus, initial encounter for closed fracture; S27.322A Contusion of lung, bilateral, initial encounter; S37.818A Other injury of adrenal gland, initial encounter; D62 Acute posthemorrhagic anemia; N39.0 Urinary tract infection, site not specified; S36.892A Contusion of other intra-abdominal organs, initial encounter; E87.2 Acidosis; E87.0 Hyperosmolality and hypernatremia; S82.52XA Displaced fracture of medial malleolus of left tibia, initial encounter for closed fracture; T14.8XXA Other injury of unspecified body region, initial encounter; S06.0X0A Concussion without loss of consciousness, initial encounter; V89.2XXA Person injured in unspecified motor-vehicle accident, traffic, initial encounter; Y93.89 Activity, other specified; Y92.89 Other specified places as the place of occurrence of the external cause; R40.2412 Glasgow coma scale score 13-15, at arrival to emergency department; E87.6 Hypokalemia; S42.001A Fracture of unspecified part of right clavicle, initial encounter for closed fracture; E83.42 Hypomagnesemia; E83.39 Other disorders of phosphorus metabolism
CPT/HCPCS: 29105; 31500; 36245; 36246; 36415; 36416; 36430; 36556; 51702; 70450; 70498; 71045; 71260; 72125; 72170; 74018; 74177; 75630; 76000; 76942; 80048; 80053; 80076; 80202; 80306; 80307; 81001; 81003; 81015; 82533; 82550; 82805; 83605; 83690; 83735; 83880; 84100; 84145; 84484; 85007; 85025; 85027; 85049; 85300; 85362; 85379; 85384; 85610; 85730; 86850; 86900; 86901; 87040; 87070; 87077; 87086; 87149; 87186; 87205; 87324; 87449; 88304; 89220; 90471; 90715; 93306; 93970; 94002; 94003; 94640; 96374; 96375; 96376; C1713; C1769; J0171; J0690; J1170; J1644; J1650; J1720; J1885; J1940; J1956; J2001; J2250; J2270; J2370; J2405; J2543; J2704; J3010; J3370; J3475; J3480; J3490; J7050; J7620; L0639; L4386; P9012; P9016; P9035; P9045; P9048; P9059; Q9967; S0028

== ENCOUNTER 2020-01-08 10:35 | Outpatient (CLI) | payer MEDICARE ==
--- NOTE | 2020-01-08 11:38 | RAD ---
THREE VIEWS CERVICAL SPINE: HISTORY: Cervical spine fracture. COMPARISON: None. CORRELATION: Cervical spine CT 10/22/2019. FINDINGS: No prevertebral soft tissue swelling. Predental space is normal. Cervical spine vertebral body height s are maintained. There is no evidence of a vertebral body fracture. Disc space heights are preserved. No malalignment. Limited evaluation the cervicothoracic junction. On the open-mouth projection, lateral masses of C1 and C2 articulate appropriately. Intact odontoid p rocess On the AP projection, multilevel facet arthropathy. IMPRESSION: Limited radiographic evidence of a reported cervical spine transverse process fracture. Comparison wi prior imaging would be beneficial. Transcribed Date/Time: 01/08/2020 12:27 PM
--- NOTE | 2020-01-08 11:41 | RAD ---
TWO VIEWS THORACIC SPINE: HISTORY: Thoracic spine fracture. COMPARISON: None. FINDINGS: Multiple right rib fractures are noted. No obvious pneumothorax. Left first rib fracture. There is mild bone demineralization. There appear to be 12 thoracic-type vertebrae. No definite verte bral body fracture. Note, evaluation of the upper thoracic spine is limited on the lateral projection. IMPRESSION: 1. Limited radiographic evidence of a previously described T8 burst fracture. 2. Multiple right rib fractures. Left first rib fracture. Transcribed Date/Time: 01/08/2020 12:30 PM
--- NOTE | 2020-01-08 11:45 | RAD ---
TWO VIEWS LUMBAR SPINE: HISTORY: L1 vertebral body fracture. FINDINGS: Five lumbar-type vertebrae. Diffuse bone demineralization. Redemonstration of chronic L1 compression fracture. Previously noted L1-L3 transverse process is difficult to appreciate on the current radiograph series. No new lumbar spine fractures. IMPRESSION: 1. Stable compression fracture at L1. 2. No radiographic evidence of previously identified transverse process fractures. Transcribed Date/Time: 01/08/2020 12:29 PM
== END 2020-01-08 10:36 | disposition home or self-care (01) ==
LOC: TBSIIMAG 10:35
PROVIDERS: ATTEND Neurological Surgery
DX: S32.019D Unspecified fracture of first lumbar vertebra, subsequent encounter for fracture with routine healing (principal); S12.9XXD Fracture of neck, unspecified, subsequent encounter; S22.061D Stable burst fracture of T7-T8 vertebra, subsequent encounter for fracture with routine healing; S22.43XD Multiple fractures of ribs, bilateral, subsequent encounter for fracture with routine healing
CPT/HCPCS: 72040; 72072; 72100